=== PATIENT | female | born 1960 | race Caucasian/White ===

== ENCOUNTER 2022-03-14 15:30 | Outpatient (RCR) | payer BC, SELFPAY | END 2022-05-22 15:13 | disposition home or self-care (01) | PROVIDERS: PCP Physician Assistant Medical; Visit Provider Physician Assistant Medical | DX: M54.42 Lumbago with sciatica, left side (principal); Z51.89 Encounter for other specified aftercare | CPT/HCPCS: 97012; 97110; 97140 ==

== ENCOUNTER 2022-04-13 14:15 | Outpatient (CLI) | payer BC, SELFPAY ==
--- NOTE | 2022-04-13 14:30 | CRLHL7_ITS ---
For Patients: As a result of the Century Cures Act, medical imaging exams and procedure reports are released immediately into your electronic medical record. You may view this report before your referring provider. If you have questions, please contact your health care provider. Indication: LOW BACK PAIN Technique: Noncontrast sagittal and axial T1, T2, and sagittal STIR sequences are provided. Comparison: No prior studies available for comparison at this institution. Findings: There is straightening of lumbar spine alignment. Multilevel chronic Schmorl`s nodes. Degenerative retrolisthesis of L5-S1. No fractures. No prevertebral or paraspinal edema. No aggressive osseous lesion. The conus medullaris is normal in signal and location. T12-L1: No significant spinal canal stenosis or neural foramen narrowing. L1-2: No significant spinal canal stenosis or neural foramen narrowing. L2-3: Mild disc bulge and facet arthrosis. No significant spinal canal stenosis or neural foramen narrowing. L3-4: Bilateral facet arthrosis. No significant spinal canal stenosis or neural foramen narrowing. L4-5: Posterior disc bulge and superimposed left central disc extrusion and bilateral facet arthrosis. Severe left and moderate right lateral recess stenosis and moderate-severe spinal canal stenosis. No neural foramen narrowing L5-S1: Moderate disc space narrowing, slight retrolisthesis. Disc bulge and bilateral facet arthrosis. Small left central disc extrusion indents the ventral thecal sac. Moderate left subarticular recess narrowing and possible irritation of the traversing S1 nerve roots. No neural foramina narrowing. Impression : 1. No acute osseous abnormality. 2. At L5-S1, there is degenerative retrolisthesis and left central disc extrusion, and facet arthrosis resulting in moderate left subarticular recess narrowing. 3. At L4-5, moderate-severe spinal canal stenosis and severe left lateral recess narrowing. 4. No significant neural foramina narrowing. Dictated by Malcolm Degroot MD @ 04/14/2022 9:03:57 AM (Electronically Signed)
== END 2022-04-13 14:16 | disposition home or self-care (01) ==
LOC: MRI 14:16
PROVIDERS: PCP Physician Assistant Medical; Visit Provider Physician Assistant Medical
DX: M54.50 Low back pain, unspecified (principal); M48.061 Spinal stenosis, lumbar region without neurogenic claudication; M51.27 Other intervertebral disc displacement, lumbosacral region
CPT/HCPCS: 72148

== ENCOUNTER 2022-09-19 11:15 | Outpatient (RCR) | payer BC, SELFPAY | END 2022-12-05 15:38 | disposition home or self-care (01) | PROVIDERS: PCP Physician Assistant Medical; Visit Provider Family Medicine | DX: M54.16 Radiculopathy, lumbar region (principal); M51.26 Other intervertebral disc displacement, lumbar region; M51.36 Other intervertebral disc degeneration, lumbar region; Z51.89 Encounter for other specified aftercare | CPT/HCPCS: 97012; 97032; 97110; 97140; 97161; 97535 ==

== ENCOUNTER 2022-09-27 14:30 | Outpatient (CLI) | payer BC, SELFPAY ==
[2022-09-27 16:56] LABS: Uric Acid* 3.8 mg/dL (2.2-8.4)
[2022-09-27 17:11] LABS: Vitamin D 25 Hydroxy* 70 ng/mL (30-80)
[2022-09-27 17:44] LABS: Vitamin B12* 511 pg/mL (243-894)
[2022-09-29 22:47] LABS: Folate, Serum 14.4 ng/mL (>=5.9)
[2022-10-04 10:46] LABS: Vitamin B1, Whole Blood 149 nmol/L (70-180)
== END 2022-09-27 14:31 | disposition home or self-care (01) ==
PROVIDERS: PCP Physician Assistant Medical; Visit Provider Physician Assistant Medical
DX: G62.9 Polyneuropathy, unspecified (principal); M79.671 Pain in right foot; M79.672 Pain in left foot
CPT/HCPCS: 82306; 82607; 82746; 84207; 84425; 84443; 84550

== ENCOUNTER 2024-02-21 13:48 | Outpatient (CLI) | payer BC, SELFPAY ==
[2024-02-22 00:37] LABS: Chlamydia DNA Amplified* NOT DETECTED (No Detected); GC DNA Amplified* NOT DETECTED (No Detected)
== END 2024-02-21 13:49 | disposition home or self-care (01) ==
LOC: LKVREF 13:48
PROVIDERS: PCP Physician Assistant Medical; Visit Provider Physician Assistant Medical
DX: Z00.00 Encounter for general adult medical examination without abnormal findings (principal); R63.4 Abnormal weight loss; I10 Essential (primary) hypertension; R73.09 Other abnormal glucose; Z13.6 Encounter for screening for cardiovascular disorders; Z13.0 Encounter for screening for diseases of the blood and blood-forming organs and certain disorders involving the immune mechanism
CPT/HCPCS: 87491; 87591

== ENCOUNTER 2024-02-22 08:20 | Outpatient (CLI) | payer BC, SELFPAY | END 2024-02-22 08:21 | disposition home or self-care (01) | LOC: NFLDREF 02-24 02:57 | PROVIDERS: PCP Physician Assistant Medical; Referring Provider Physician Assistant Medical; Visit Provider Physician Assistant Medical | DX: Z00.00 Encounter for general adult medical examination without abnormal findings (principal); R63.4 Abnormal weight loss; I10 Essential (primary) hypertension; R73.09 Other abnormal glucose; Z13.6 Encounter for screening for cardiovascular disorders; Z13.0 Encounter for screening for diseases of the blood and blood-forming organs and certain disorders involving the immune mechanism | CPT/HCPCS: 80053; 84443; 86703; 86803 ==

== ENCOUNTER 2024-03-11 14:55 | Outpatient (CLI) | payer BC, SELFPAY ==
--- OUTSIDE RECORDS SUMMARY | 2024-03-14 02:58 | XMS_ITS | Referral Summary ---
Author Organization [facility] Address [address] [place] [address]. [place] [address] Care Team Providers Care Fire Inspector Name Role Phone Ely Whitehead MD Primary Care Provider Allergies Active Allergy Reactions Criticality Noted Date Comments Tetracycline Other (See Comments) 07/26/2011 Facial numbness Face numbness Medications Medication Sig Dispensed Refills Start Date End Date Status Ranitidine HCl (ZANTAC PO) Take 75 mg by mouth daily Active LISINOPRIL PO Take 20 mg by mouth daily Active Cholecalciferol (VITAMIN D) 2000 units tablet Take 2,000 Units by mouth Active omega 3 1000 MG CAPS Take 2 g by mouth Active MAGNESIUM OXIDE PO Take 400 mg by mouth Active mupirocin (BACTROBAN) 2 % ointmentIndications:Se baceous cyst Apply to left lateral ear canal BID x 1 month supply 2 g 3 02/28/2018 Active Active Problems Problem Noted Date Diagnosed Date Menorrhagia 10/25/2014 Social History Tobacco Use Types Packs/Day Years Used Date Smoking Tobacco: Never Smokeless Tobacco: Never Tobacco Cessation:Counseling Given: No Alcohol Use Standard Drinks/Week Comments No 0 (1 standard drink = 0.6 oz pur e alcohol) PHQ-2 Answer Date Recorded PHQ-2 Score 0 03/22/2018 Adolescent Education Answer Date Record ed Getting School Help Needed Not on file 06/13 Sex and Gender Information Value Date Recorded Sex Assigned at Not on file Gender Identity Not on file Sexual Orientation Not on file Last Filed Vital Signs Vital Sign Reading Time Taken Comments Blood Pressure 149/81 03/02/2020 5:00 PM CDT Pulse 60 03/02/2020 5:00 PM CDT Temperature 36.4 ??C (97.6 ??F) 03/02/2020 2:46 PM CD T Respiratory Rate 16 03/02/2020 7:16 PM CDT Oxygen Saturation 97% 03/02/2020 5:00 PM CDT Inhaled Oxygen Concentration - - Weight 72.1 kg (159 lb) 03/22/2018 12:52 PM CDT Height 175 cm (5' 8.9) 03/22/2018 12:52 PM CDT Body Mass Index 23.55 03/22/2018 12:52 PM CDT Plan of Treatment Not on file Care Teams Fire Inspector Relationship Specialty Start Date End Date Ely Whitehead MD [facility] [address] [place] [address] PCP - General Family Practice 10/08/14
--- OUTSIDE RECORDS SUMMARY | 2024-03-14 02:58 | XMS_ITS | Encounter Summary ---
Author Organization [facility] Address [address] [place] [address]. [place] [address] Care Team Providers Care Linux Network Systems Administrator Name Role Phone Ely Whitehead MD Primary Care Provider [phone]- [phone] Reason for Visit * Reason Onset Date Comments Appointment 04/23/2018 Encounter Details Date Type Department Care Team (Late st Contact Info) Description 04/23/2018 Telephone [facility] [address] [facility] 4th [place] [address] Ely Whitehead MD [facility] [id number] [place] [address] [place] [address] Appointment Social History Tobacco Use Types Packs/Day Years Used Date Smoking Tobacco: Never Smokeless Tobacco: Never Alcohol Use Standard Drinks/Week Comments No 0 (1 standard drink = 0.6 oz pur e alcohol) PHQ-2 Answer Date Recorded PHQ-2 Score 0 03/22/2018 Sex and Gender Information Value Date Recorded Sex Assigned at Not on file Gender Identity Not on file Sexual Orientation Not on file documented as of this encounter Miscellaneous Notes * Telephone Encounter - Edson Hamilton - 04/23/2018 9:10 AM CDT [facility] Phone Message May a detailed message be left on voicemail: yes Reason for Call: Other: Marcy Escalera - Pt would like to change her appt. on 05/17/18 Action Taken: Message routed to: [facility] Please call Pt to see if it can be rescheduled documented in this encounter Plan of Treatment Not on file documented as of this encounter Visit Diagnoses Not on filedocumented in this encounter Care Teams Linux Network Systems Administrator Relationship Specialty Start Date End Date Ely Whitehead MD [facility] [place] [address] [place] [address] [place] [id number] PCP - General Family Practice 10/08/14 documented as of this encounter
--- OUTSIDE RECORDS SUMMARY | 2024-03-14 02:58 | XMS_ITS | Clinical Summary ---
Author Organization [facility] Address [address] [place] [address] Care Team Providers Care Fructose Loader Name Role Phone Ely Whitehead MD Primary Care Provider Source Comments You are receiving this document as you are listed as the primary care provider,follow-up provider, or the patient has been referred to you for consultation.This is in compliance with the Medicare andSt. [facility] Hospital[facility] EHR Incentive Program,which states Providers who transition their patient to another setting of careor provider of care or refers their patient to another provider of care shouldprovide summary care record for each transition of care or referral. [facility] Allergies Active Allergy Reactions Criticality Noted Date Comments Tetracyclines & Related Other, see comments High PN: facial numbness Medications Medication Sig Dispensed Refills Start Date End Date Status Magnesium Glycinate 665 MG CAPS Take as directed. 03/16/2021 Active ibuprofen (MOTRIN) 200 MG tablet Take by mouth every 6 hours. 03/01/2022 Active lisinopril (ZESTRIL) 10 MG tabletIndications:Hy pertension Take 1 Tablet (10 mg) by mouth daily. Indications: High Blood Pressure Disorder 90 Tablet 4 04/12/2023 Active Cholecalciferol (VITAMIN D3) 1.25 MG (41171 UT) TABS 05/27/2022 Active Active Problems Problem Noted Date Diagnosed Date Prediabetes 04/12/2023 Varicose veins of left lower extremity with comp lications 05/18/2022 Overview: Added automatically from request for surgery [id number] Hyperlipidemia 03/16/2022 Essential hypertension Resolved Problems Problem Noted Date Diagnosed Date Resolved Date Carotid artery narrowing 03/05/2020 Overview: Left superior cornu of thyroid cartilage exerts localized mass effect on the mid cervical portion of the left ICA resulting in narrowing of 65% on CTA at in 02/2020. Right-sided tinnitus 03/05/2020 021 Macromastia 05/21/2019 02/19/2020 Overview: Added automatically from request for surgery [id number] Palpitations 02/04/2019 03/16/2021 Overview: Ziopatch 12/2018 showed benign non-sustained supraventricular tachycardia. Myofascial pain 06/11/2018 03/16/2021 Neck pain 06/11/2018 03/16/2021 Cervicocranial syndrome 06/11/201802/25 Costochondral chest pain 08/15/2013 Stress incontinence, female 03/25/2012 03/31/2013 Deviated nasal septum 03/25/20122020 GERD (gastroesophageal reflux disease) 03/25/2012 03/17/2022 HTN (hypertension) 6 Overview: Cr 0.8, Na 140, K 4.3 on labs 02/2015 at work. IFG (impaired fasting glucose) 03/16/2021 Immunizations Name Administration Dates Next Due Flu Vac Preserv Free (3+yrs) 05/11/2015,06/24/20 10,07/29/2009 Flublok (RIV4) 05/23/2023 Fluzone Qiv Multidose Vial 0 .25 (6-35 Mos) 05/05/2020 [id number] 09/01/2009 HepB Adult (Engerix-B, 20+ y rs, 3 dose series) 04/03/2007,11/13/2006,10/08/2006 HepB, Unspecified Formulation 04/03/2007, 007,10/08/2006 IPV (Polio) 05/08/1963,,01/26/1962,1961 Influenza (Flucelvax), Prese rv Free QIV 05/17/2022,06/12/2021 Influenza IIV4 (Quadrivalent ) 0.5mL (84924) 05/05/2019,06/08/2018,06/04/2017,2012,09/01/2009 Influenza, Unspecified Formulation 06/04/2017 Moderna 12+ 05/23/2023 Moderna Bivalent 12+ 05/17/2022 Moderna Monovalent 12+ 02/07/2022,2020,12/21/2020,2020 OPV, Trivalent (Orimune or tOPV) 963,02/25/1962,01/26/1962,1961 RSV Arexvy 05/23/2023 TDAP (BOOSTRIX) 03/25/2012 Td 09/15/2003 Td (7+ yrs) 09/15/2003 Tdap 03/17/2022 Zoster RZV (Shingrix) 05/28/2020,05/11/2020,01/26 Family History Medical History Relation Name Comments Coronary Artery Disease Father Heart Failure Father Colon Polyps Mother Aisha unknown type High Cholesterol Mother Aisha Hypertension Mother Aisha Lymphoma Mother Aisha Non-Hodgkin's Hypertension Brother 1 Elvis Other Brother 1 Elvis neurologic diso rder Hypertension Brother 2 Don Urolithiasis Brother 3 Rafiq Hypertension Sister Estefany Anesthesia Reaction Negative Family History Cancer, Breast Negative Family History Cancer, Colon Negative Family History Cancer, Ovary Negative Family History Relation Name Status Comments Father Mother Aisha Brother 1 Elvis Alive Brother 2 Don Alive Brother 3 Rafiq Alive Maternal Grandfather Maternal Grandmother Paternal Grandfather Paternal Grandmother Sister Estefany Alive Social History Tobacco Use Types Packs/Day Years Used Date Smoking Tobacco: Never Passive Smoke Exposure: Never Smokeless Tobacco: Never Alcohol Use Standard Drinks/Week Comments Never 0 (1 standard drink = 0.6 oz pur e alcohol) PHQ-2 Answer Date Recorded PHQ-2 Score 0 04/12/2023 Financial Resource Strain Answer Date R ecorded Is it hard for you to pay fo r the very basics like food, housing, medical care or heating? No 04/11/2023 Food Insecurity Answer Date Recorded Does your food run out before you have the money to buy more? No 04/11/2023 Transportation Needs Answer Date Record ed Does a lack of transportatio n keep you from your medical appointments or from getting your medications? No 023 Sex and Gender Information Value Date Recorded Sex Assigned at Not on file Gender Identity Not on file Sexual Orientation Not on file Last Filed Vital Signs Vital Sign Reading Time Taken Comments Blood Pressure 114/83 04/12/2023 11:02 AM CDT Pulse 61 04/12/2023 11:02 AM CDT Temperature 36.9 ??C (98.5 ??F) 09/29/2019 9:08 AM CS T Respiratory Rate 17 06/11/2020 1:07 PM CDT Oxygen Saturation 99% 10/25/2017 5:10 PM ACCOUNT TECHNICIAN Inhaled Oxygen Concentration - - Weight 73.1 kg (161 lb 3.2 oz) 04/12/2023 11:02 AM CDT Height 176.5 cm (5' 9.5) 04/12/2023 11:02 AM CD T Body Mass Index 23.46 04/12/2023 11:02 AM CDT Plan of Treatment Health Maintenance Due Date Last Done Comments Adult Preventive Visit 04/12/2024 , 03/17/2022, 03/16/2021, Additional history exists Mammogram 04/12/2024 04/12/2023, 02/25, 03/01/2021, Additional history exists Prediabetes: HGBA1C 04/12/2024 04/12/2023, 03/17/2022, 03/16/2021, Additional history exists Influenza (#1) 2024 05/23/2023, 04/28, 06/12/2021, Additional history exists Cholesterol 04/12/2028 04/12/2023, 02/25, 12/07/2018, Additional history exists Colonoscopy 03/01/2032 03/01/2022, 03/28 (Completed) DTaP/Tdap/Td (3 - Tdap) 03/17/2032 03/17/20 22, 03/25/2012, 09/15/2003, Additional history exists IPV (Polio) Completed 05/08/1963, 04/27, 03/03/1962, Additional history exists HepB Completed 04/03/2007, 03/2007, 11/13/2006, Additional history exists Hep C Screening (Preventive Services) Completed 12/01/2015 HIV Screening (Preventive Services) Completed 02/04/2018 Zoster/Shingles Completed 05/28/2020, 04/27, 02/19/2020 Cervical Cancer Screening Discontinued 2022, 01/30/2018, 04/15/2014 COVID-19 Vaccine Completed 05/23/2023, , 02/07/2022, Additional history exists HepA Aged Out No longer eligi ble based on patient's age to complete this topic Hib Aged Out No longer eligi ble based on patient's age to complete this topic MCV4 Aged Out No longer eligi ble based on patient's age to complete this topic Pneumococcal Aged Out No longer eligi ble based on patient's age to complete this topic Procedures Procedure Name Priority Date/Time Associated Diagnosis Comments HGB A1C Routine 04/12/2023 12:12 PM CDT Screening for diabetes mellitus LIPID PANEL & DIRECT LDL (IF NEEDED) Routine 04/12/2023 12:12 PM CDT Hyperlipidemia, unspecified hyperlipidemia type (HRC) PAP TEST Routine 04/12/2023 11:56 AM CDT Screening for malignant neoplasm of cervix MM MAMMOGRAM SCREENING BILAT W 3D ISAIAH W CAD Routine 04/12/2023 10:41 AM CDT COLONOSCOPY S 03/01/2022 HIV 1/2 AG/AB 4TH GEN Routine 02/04/2018 7:45 AM CDT Screening for HIV (human immunodeficiency virus) HEPATITIS C ANTIBODY, WITH REFLEX Routine 12/01/2015 12:36 PM CDT Need for hepatitis C screening test from Last 3 Months or Most Recently Relevant to Health Maintenance Results * (ABNORMAL) Lipid Panel and Direct LDL(If Needed) (04/12/2023 12:12 PM CDT) [facility] Cholesterol 203(H) 0 - 199 mg/dL 04/12/2023 1:41 PM CDT [facility] Triglyceride 70 <=149 mg/dL 04/12/2023 1:41 PM T [facility] HDL Cholesterol 63 >=40 mg/dL 3 1:41 PM CDT [facility] LDL, Calculated 126 <130 mg/dL 3 1:41 PM T [facility] Non HDL Chol, Calculated 140 <=159 mg/dL 04/12/2023 1:41 PM T [facility] Cholesterol/HDL Ratio 3.2 04/12/2023 1:41 PM [facility] Hours Fasting 12.0 8 - 12 Hours 04/12/2023 1:41 PM [facility] Blood Venipuncture / Unknown 04/12/2023 12:12 PM CDT 04/12/2023 12:12 PM CDT Ely Whitehead MD LAB_1 [facility] [address] [place] [address], [facility] [phone] * Hgb A1C (04/12/2023 12:12 PM CDT) [facility] Hemoglobin A1C (Rapid) 5.5 <=5.6 % 04/12/2023 12:37 PM CDT [facility] Estimated Average Glucose (Calc) 111 < 117 mg/dL 04/12/2023 12:37 PM [facility] Comment:Estimated average gl ucose (eAG) converts A1c into glucose units (mg/dL) and estimates average glucose over the past approximately 3 months. The eAG reference interval (<117 mg/dL) corresponds to an A1c of <5.7%. Blood Venipuncture / Unknown 04/12/2023 12:12 PM CDT 04/12/2023 12:12 PM CDT Narrative [facility] - 04/12/2023 12:37 PM CDT The test method used for this Hemoglobin A1c result can experience interference from elevated hemoglobin and other hemoglobin variants. In patients with results that do not correlate clinically, contact the lab for further direction. Ely Whitehead MD LAB_1 [facility] [address] [place] [address], [facility] [phone] * PAP Test (04/12/2023 11:56 AM CDT) Case Report Pap ? Case: [id number] ? Authorizing Provider: ??Ely Whitehead MD Collected: ? 04/12/2023 1156 ? Ordering Location: ? [facility] Received: ?04/12/2023 1300 ? First Screen: ?Minda Le ? Rescreen: ?Lily Jolly ? Specimen: ?Pap Test, Routine, Cervix/Endocervix ? 04/23/2023 3:28 PM CDT [facility] Pap Specimen Adequacy Satisfactory for evaluation, endocervical/rockwell sformation zone component present. 04/23/2023 3:28 PM CDT [facility] Pap Interpretation (NILM) Negative for intraepithelial lesion or malignancy. 04/23/2023 3:28 PM CDT [facility] Pap Disclaimer The Pap test is a screening test to aid in the detection of cervical and vaginal cancers and their precursor lesions. It is not a diagnostic procedure and should not be used as the sole means of detecting malignancy. Both false-positive and false-negative results may occur. 04/23/2023 3:28 PM CDT [facility] Gross Description The specimen is received in SurePath fixative and properly labeled. 1 Pap-stained SurePath slide is prepared. 04/23/2023 3:28 PM CDT [facility] Embedded Images 3:28 PM CDT [facility] Other Specimen Type ENTIRE ENDOCERVIX / Unknown 04/12/2023 11:56 AM CDT 04/12/2023 1:00 PM CDT Comment:LMP: No LMP recorded . Patient has had an ablation. Ely Whitehead MD LAB PATHOLOGY Performing Organization Address City/State/[facility] Co de Phone Number [facility] [address] [employer] [address] * MM Mammogram Screening Bilat W 3D Isaiah W CAD (04/12/2023 10:41 AM CDT) Anatomical Region Laterality Modality Breast Bilateral Mammography Impressions 04/12/2023 4:56 PM CDT : ACR BI-RADS Category 2: Benign RECOMMENDATION: Follow Up Imaging in 12 months - Bilateral The results and recommendations of this examination will be communicated to the patient. Narrative 04/12/2023 4:56 PM CDT MM MAMMOGRAM SCREENING BILAT W 3D ISAIAH W CAD performed on 04/12/23 Compared to: 03/17/2022 MM Mammogram Screening Bilat W 3D Isaiah W CAD, 03/01/2021 MM Mammogram Screening Bilat W 3D Isaiah W CAD, and 03/10/2019 MM Mammogram Screening Bilat W 3D Isaiah W CAD ?? FINDINGS: Bilateral screening mammogram was performed with the assistance of Computer-Aided Detection and breast tomosynthesis. The breasts are heterogeneously dense, which may obscure small masses. There are changes of breast reduction. There is no radiographic evidence of malignancy. ?? Ely Whitehead MD RAD NEHEMIAS * COLONOSCOPY S (03/01/2022) Ely Whitehead MD DUMMY/OTHER/AR * HIV 1/2 Ag/Ab 4th Generation (02/04/2018 7:45 AM CDT) HIV-1 p24 Ag and HIV-1/HIV-2 Ab Nonreactive Nonreactive PN SOFT 02/04/2018 7:45 AM CDT 02/04/2018 12:58 PM CDT Narrative PN SOFT - 02/04/2018 5:50 PM CDT Performed at [address] [address] CLIA number [id number] Ely Whitehead MD LAB_1 SOFT [address] [place] [address] * Hepatitis C Antibody, with Reflex (12/01/2015 12:36 PM CDT) Hepatitis C Antibody Nonreactive Non-React norah HP CONVERSION 12/01/2015 12:3 6 PM CDT 12/01/2015 3:15 PM CDT Narrative HP CONVERSION - 12/01/2015 5:59 PM CDT Performed at [address] [place] [address] [place] number [id number] Ely Whitehead MD LAB_1 HP CONVERSION from Last 3 Months or Most Recently Relevant to Health Maintenance Advance Directives * Full Code (Latest Code Status on File) Date Activated Date Inactivated Comments 01/03/2013 9:37 AM 01/03/2013 6:20 PM Care Teams Fructose Loader Relationship Specialty [place] [address] [place] [address] PCP - General 02/16/12
--- OUTSIDE RECORDS SUMMARY | 2024-03-14 02:58 | XMS_ITS | Encounter Summary ---
Author Organization [facility] Address [address] [place] [address]. [place] [address] Care Team Providers Care Chef Head Name Role Phone Ely Whitehead MD Primary Care Provider +1- [phone] Encounter Details Date Type Department Care Team (Late st Contact Info) Description 05/14/2018 [facility] [facility] N[facility] Th[facility] [address] [facility] 4th [place] [address] Ze Pierson MD [address] [facility] [address] [place] [address] Social History Tobacco Use Types Packs/Day Years [...] on file documented as of this encounter Plan of Treatment Not on file documented as of this encounter Visit Diagnoses Not on filedocumented in this encounter Care Teams Chef Head Relationship Specialty Start Date End Date Ely Whitehead MD [facility] [address] [place] [address] PCP - General Family Practice 10/08/14 documented as of this encounter
--- OUTSIDE RECORDS SUMMARY | 2024-03-14 02:58 | XMS_ITS | Clinical Summary ---
Author Organization [facility] Address [place], [place] [address] Care Team Providers Care Warp Knitter Helper Name Role Phone Ely Whitehead MD Primary Care Provider Allergies Active Allergy Reactions Criticality Noted Date Comments Tetracycline Other - Describe In Comment Field 07/26/2011 Facial numbness Medications Medication Sig Dispensed Refills Start Date End Date Status lisinopril (PRINIVIL; ZESTRIL) 20 mg tablet TAKE ONE TABLET BY MOUTH ONE TIME DAILY 30 tablet 0 09/03/2014 Active cholecalciferol, Vitamin D3, 5,000 unit tab tablet Take by mouth once daily. 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 Magnesium glycinate 0 06/28/2022 Active traMADoL (ULTRAM) 50 mg tabletIndications:Lum bar radiculopathy Take 1 Tablet (50 mg) by mouth every 6 hours if needed for Pain. 18 Tablet 09/14/2022 Active tiZANidine (ZANAFLEX) 4 mg tabletIndications:Lum bar radiculopathy TAKE 1 TABLET(4 MG) BY MOUTH EVERY 6 HOURS NEEDED FOR MUSCLE SPASM 24 Tablet 1 09/27/2022 Active gabapentin (NEURONTIN) 300 mg capsuleIndications:Carmen mbar radiculopathy TAKE 1 CAPSULE(300 MG) BY MOUTH AT BEDTIME 30 Capsule 10/22/2022 Active Active Problems Problem Noted Date Diagnosed Date Rosacea 06/08/2015 HTN (hypertension) 08/15/2013 Costochondral chest pain 08/15/2013 Pre-employment examination 07/26/2011 Encounters Date Type Department Care Team Description 03/05/2024 Lab Requisition [facility] [phone] Justine Kurtz MD 02/22/2024 Lab Requisition [facility] [phone] Jennifer Hollis PA-C from Last 3 Months Immunizations Name Administration Dates Next Due Hepatitis B (Adult) 04/03/2007,11/13/2006,2006 Influenza, IIV3 (Age >=3 years) 05/22/2013 Tdap 03/25/2012 Family History Medical History Relation Name Comments Heart Disease Father Cancer Mother non-hodgkins ly mphoma Heart Disease Mother stents Relation Name Status Comments Father Mother Social History Tobacco Use Types Packs/Day Years Used Date Smoking Tobacco: Never Smokeless Tobacco: Never Tobacco Cessation:Counseling Given: Yes Alcohol Use Standard Drinks/Week Comments No 0 (1 standard drink = 0.6 oz pur e alcohol) Social Connections Answer Date Recorded Frequency of Communication with Friends and Fami ly Not on file 06/28/2022 Sex and Gender Information Value Date Recorded Sex Assigned at Not on file Gender Identity Not on file Sexual Orientation Not on file Obstetrics History Last Filed Vital Signs Vital Sign Reading Time Taken Comments Blood Pressure 94/65 12/06/2022 2:14 PM CDT Pulse 65 12/06/2022 2:14 PM CDT Temperature 36.9 ??C (98.4 ??F) 12/06/2022 2:14 PM CD T Respiratory Rate 12 01/29/2014 9:41 AM CDT Oxygen Saturation 96% 12/06/2022 2:14 PM CDT Inhaled Oxygen Concentration - - Weight 77.5 kg (170 lb 12.8 oz) 12/06/2022 2:14 PM CDT shoes on Height 175.9 cm (5' 9.25) 08/15/2013 4:26 PM CS T Body Mass Index 25.04 08/15/2013 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 Plan of Treatment Health Maintenance Due Date Last Done Comments Depression screening for age 12+ 1973 HIV for age 15-65 1976 BMI (ht and wt on same day) for age 18+ 1979 Hepatitis C screening for age 18-79 1979 Lipids for age 45-75 2006 Zoster (shingles) series for age 50+ (1 of 2) 2011 Mammogram for age 45-75 03/03/2014 03/03/20 13 (Completed outside of [facility]) Tetanus booster 03/25/2022 03/25/2012 Colonoscopy through age 75 09/26/202209/26 (Completed outside of [facility]) Influenza for age 50-64 04/27/2024 05/22/2013 Pap test for age 21-65 02/20/2029 4, 02/21/2024, 01/30/2018 (Verified in Care Everywhere or Patient Record), Additional history exists Tdap Completed 03/25/2012 COVID-19 vaccine series Completed 05/23/2023, 05/17 Pneumococcal series for age 6-64 Aged Out No longer eligible based on patient's age to complete this topic Procedures Procedure Name Priority Date/Time Associated Diagnosis Comments LAB TRACKING EVENT Routine 03/05/2024 12 :55 PM CDT PATH TISSUE EXAM Routine 03/05/2024 12:5 5 PM CDT LAB TRACKING EVENT Routine 02/21/2024 12 :00 PM CDT DIRECTOR OF SEARCH ENGINE OPTIMIZATION THIN PREP PAP SCREEN IMAGED Routine 02/21/2024 12:00 PM CDT HPV THIN PREP Routine 02/21/2024 12:00 PM CDT from Last 3 Months Results * LAB TRACKING EVENT (03/05/2024 12:55 PM CDT) Only the most recent of2 resultswithin the time period is included. Other (Other) Client Collect / Unknown 03/05/2024 12:55 PM CDT 03/05/2024 3:38 PM CDT Justine Kurtz MD LAB BILL O [facility] [address] [place] [address], * PATH TISSUE EXAM (03/05/2024 12:55 PM CDT) Case Report Pathology Report ?Case: [id number] ? Authorizing Provider: ??Justine Kurtz ?Collected: ? 03/05/2024 1255 ? MD Celina ? Ordering Location: ? [facility] ?Received: ?03/05/2024 1823 ? Pathologist: ? Mamta Mccain MD ? Specimen: ?Cervical Polyp ? 03/07/2024 9:35 AM CDT [facility]TRAL LABORATORY Final Diagnosis A) CERVIX, POLYPECTOMY: 1. Benign endocervical polyp with reactive changes 2. Negative for glandular neoplasia, squamous intraepithelial lesion, and malignancy 03/07/2024 9:35 AM CDT [facility] Clinical Information Cervical polyp 03/07/2024 9:35 AM CDT [facility]AL LABORATORY Gross Description A) Received in formalin, labeled with the patient's name and cervical polyp, is a 0.5 x 0.5 x 0.3 cm pink-garcia rubbery polyp. ??Apparent base is inked. ??The specimen is entirely submitted in 1 cassette. TLF 03/05/2024 03/07/2024 9:35 AM CDT [facility] Microscopic Description The final diagnosis is based on microscopic examination of appropriate sections of all specimens. 03/07/2024 9:35 AM CDT [facility] Additional Information Interpreted at [facility] - [address] [place] [id number] 03/07/2024 9:35 AM CDT [facility] Other (Cervical Polyp) 03/05/2024 12:55 PM CDT 03/05/2024 6:23 PM CDT Justine Kurtz MD PATHOLOGY/ CYTOLOGY Performing Organization Address City/State/[facility] Co de Phone Number [facility] [address] [place] [address], * DIRECTOR OF SEARCH ENGINE OPTIMIZATION THIN PREP PAP SCREEN IMAGED (02/21/2024 12:00 PM CDT) Case Report Gynecologic Cytology Report ? Case: [id number] ? Authorizing Provider: ??Jennifer Hollis PA-C ?Collected: ? 02/21/2024 1200 ? Ordering Location: ? [facility] ?Received: ?02/25/2024 1610 ? First Screen: ?Afsaneh Leon ? Specimen: ?DIRECTOR OF SEARCH ENGINE OPTIMIZATION ThinPrep Vial Screening, Cervical ? 03/02/2024 12:58 PM CDT [facility] INTERPRETATION/ RESULT NEGATIVE FOR INTRAEPITHELIAL LESION OR MALIGNANCY (NIL) (none) 03/02/2024 12:58 PM CDT [facility] IMEN ADEQUACY Satisfactory for evaluation No endocervical component seen 03/02/2024 12:58 PM CDT [facility] HPV REQUEST HPV and PAP 03/02/2024 12:58 PM CDT [facility] Date of LMP 03/02/2024 12:58 PM CDT [facility] Comment:menopause Last Pap Date 06/04/2017 03/02/2024 12:58 PM CDT [facility] Last Pap Result NIL 12:58 PM CDT [facility] Additional Information 03/02/2024 12:58 PM CDT [facility] Comment: Interpreted at [facility] - [address], [place] [address] Automated Review Successful 03/02/2024 12:58 PM CDT [facility] Comment:Specimen processed s uccessfully by automated passenger coach driver device, ThinPrep Imaging System, [employer] ANCILLARY TESTING DIRECTOR OF SEARCH ENGINE OPTIMIZATION HPV Ordered, Please see separate report 03/02/2024 12:58 PM CDT [facility] Note The pap test is a screening technique, not a diagnostic procedure. It is used primarily to screen for squamous cancers and precursor lesions. Published studies have shown that it is subject to both false negative and false positive results. The pap test should not be used as the sole means to diagnose or exclude pre-malignant and malignant lesions. 03/02/2024 12:58 PM CDT [facility] Other (Cervical) 02/21/2024 12:00 PM CDT 02/25/2024 4:10 PM CDT Jennifer Hollis PA-C PATHOLOGY/CYTOLOGY Performing Organization Address [facility]/ZIP Co de Phone Number [facility] [address] [place] [address], * HPV HIGH RISK (02/21/2024 12:00 PM CDT) TYPE 16 Negative Negative 02/27/2024 6:05 AM CDT [facility]AT[facility] TYPE 18 Negative Negative 02/27/2024 6:05 AM CDT [facility] OTHER HIGH RISK TYPES Negative Negative 02/27/2024 6:05 AM CDT [facility] Other (Cervical) 02/21/2024 12:00 PM CDT 02/25/2024 4:10 PM CDT Narrative [facility] - 02/27/2024 6:05 AM CDT HPV types 16, 18, 31, 33, 35, 39, 45, 51, 52, 56, 58, 59, 66 and 68 DNA were undetectable or below the pre-set threshold. Methodology: Keila Yusra 4800 HPV Test Jennifer Hollis PA-C MICROBIOLOGY Performing Organization Address [facility] Co de Phone Number [facility] [address] [place] [address], from Last 3 Months Care Teams Warp Knitter Helper Relationship Specialty [place] [address] [place] ASHLEE Medeiros [address] PCP - General Family Practice 12/21/22
--- OUTSIDE RECORDS SUMMARY | 2024-03-14 02:58 | XMS_ITS | Continuity of Care Document ---
Author Organization [place] [facility] [place] Address [address] [place] [address] Care Team Providers Care Property Manager Name Role Phone CLAYTON DC Referring Provider Assessment Encounter Date Assessment Date Assessment LastModified by Organization Details LastModified Time 03/12/2024 03/12/2024 Time spent reviewing the patient? s medical record, diagnostic studies, performing a focused history and physical exam, educating the patient regarding the natural history of disease as it pertains to the patient, discussing treatment options and alternatives, medical decision making, and chartin-59 minutes. Not available 03/12/2024 15:46:22 Plan of Treatment Reminders Order Date Submit Date Provider Last Modified By Organization Details Last Modified Time Details Appointments Post Conserv ative Treatme ntRVT 2023 02:00P [facility] Not available Not available Not available Post Conserv ative Treatme nt MD 2023 02:20P [facility] Not available Not available Not available Lab None recorde d. Referral None recorde d. Procedures None recorde d. Surgeries None recorde d. Imaging None recorde d. Medication Orders None recorde d. Patient TargetsNo targets recorded. Patient Instructions Encounter Date Encounter Id Patient Instructions Last Modified By Organization Details Last Modified Time 03/12/2024 [id number] PROCEDURE RECOMMENDATIONS 1. Ultrasound guided foam sclerotherapy of the residual incompetent tributaries and varicosities greater than 3.0mm of the left leg (36770, 61760) - 2 sessions Not available 03/12/2024 15:46:57 Reason for Referral None Reported. Problems Name Status Onset Date Resolution Date Notes Provider Name and Address Organization Details Recorded Time Essential hypertension Active 03/12/20 24 Chapito Mei PA-C [address], [place], [address], [facility] 03/12/2024 15:24:00 Problem Notes None recorded. Procedures Surgical History Date Name Laterality Status Provider Name and Address Organization Details Recorded Time 02/25/20 24 Colonoscopy completed Chapito Mei PA-C [address], [place], [address], [facility] 03/12/2024 15:23:42 06/14/20 20 Orthopedic Surgery completed Chapito Mei PA-C [address], [place], [address], [facility] 03/12/2024 15:23:42 02/24/19 77 Appendectomy completed Chapito Mei PA-C [address], [place], [address], [facility] 03/12/2024 15:23:42 Imaging Results None recorded. Procedure Notes None recorded. Medical Equipment None Reported. Allergies Allergen ID Allergen Name Allergen Category Reaction Reaction Severity Criticality Documentation Date Start Date Code Code System Note Provider Name and Address Organization Details Recorded Time 6074 tetracycl ine medicatio n Not available Not available Not available 03/12/20242008 62228 RxNorm Chapito Mei PA-C [address], [place], [address], [facility] 15:23:14 Medications Name Sig Start Date Stop Date Status Note LastModified by Organization Details LastModified Time sulfamethox azole 800 mg-trimetho prim 160 mg tablet 03/12 completed Not Available Not Available Not Available lisinopril 10 mg tablet active Not Available Not Available Not Available Vitamin D3 50 mcg (2,000 unit) capsule 2021 active Not Available Not Available Not Avai lable magnesium 100 mg (as glycinate) capsule 2 capsules every day by oral route. active Not Available Not Available No t Available Vitals Date Recorded Body height Body mass index (BMI) Body weight Provider Name and Address Organization Details Last Updated DateTime 03/12/2024 175.26 cm 22.7 kg/m2 10394.22 g Chapito Mei PA-C [address], [place], [address], [facility] 03/12/2024 15:23:04 Social History Question Answer Notes LastModified by Organizat ion Details LastModified Time Tobacco Smoking Status Never Smoker Chapito Mei PA-C [address] [place], [address], [place] [facility] 03/12/2024 15:23:39 What Is Your Level Of Alcohol Consumption? 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 No Information not available 03/12/2024 Sex: Unknown Functional Status None recorded. Mental Status None recorded. Family History Relationship Description Onset Age of this Age Resolved Age Notes Mother Varicose veins of lo wer extremity 40 78 Medical History Condition Response Hypertension Y Gynecological History Statement/Question Response How many childrens do you have? 3 Number of Miscarriages 2 Number of Pregnancies 5 Are you or planning to become p regnant? N Are you ? N Obstetrics History GPAL:G 0 P 0 0 0 0 Past Encounters Encounter ID Performer Location Encounter Start Date Encounter Closed Date Diagnosis/Indication Diagnosis SNOMED-CT Code [id number] Nurys Veronica MD [address],[facility] [address] [place] [address] 03/12/2024 14:49:18 03/12/2024 16:14:46 Pain co-occurrent and due to varicose veins of left leg [id number] Nurys Veronica MD [place] [address] [facility],[address] [address] 03/12/2024 14:49:28 03/12/2024 16:16:52 Pain co-occurrent and due to varicose veins of left leg [id number] 9102 Health Concerns Section Related Observation LastModified by Organization Detai ls LastModified Time None Recorded Concern Status LastModified by Organization Details LastModified Time None Recorded Payers Encounter Date Sequence Insurance Name Policy Number Policy De La Garza Covered Member ID De La Garza Member ID Guarantor Name 03/12/2024 1 [facility] [id number] Irish Holley [id number] Irish Holley Notes Date Note Type Note Provider Name and Address Organization Details Recorded Time 03/12/2024 text/html HPI Notes: PVC ( Q4U) Initial Reported by patient. Please select the location of your concern Left Leg: Leg I have had symptoms: More than 1 year Have you ever experienced any of the following symptoms? Pain; Aching; Heaviness; Spider veins; Bulging veins When do the symptoms occur? Sitting; Standing up; After exercise; During exercise What activities of daily living do the symptoms affect? Sleep; Exercise; Work; Chores; Leisure Activities; Pain is always there no matter what I am doing What relieves your symptoms? Over the counter medicationsAdvil Do you wear compression stockings to relieve your symptoms? No Have you ever had a previous vein evaluation or treatment? Yes; Ultrasound of both legs Indicate which prior vein treatments you have had: OtherUltrasound of both legs Have you ever been diagnosed with the following? None uNrys Veronica MD [address], [place], [address], [place] [facility] 03/12/2024 16:14:45 03/12/2024 text/html HPI Notes: The patient is a 63 yo female who presents with complaints of left lower extremity varicose veins and increasing symptoms for the past few years. Symptoms include: pain, aching, heavy legs, recurring swelling, spider veins, surface veins. There is no history of DVT, SVT, ulceration, cellulitis or phleborrhagia. Symptom location: Bilateral spider veins, Left leg varicose veins and symptoms Symptom severity: 5/10; moderately severe Symptoms occur with: prolonged sitting and standing, after activity/exercise, and are worse later in the day. ADLs affected by symptoms: -Exercise/activity: limit ability to exercise, including walking. -Work: Needs to take frequent breaks to walk and/or elevate legs. -Chores: Avoids chores or needs to take breaks to walk and/or elevate legs. -Leisure activities: Avoids activities or needs to take breaks to walk and/or elevate. Conservative measures implemented without relief of symptoms: -avoidance of prolonged periods of sitting or standing, -regular exercise including moderate daily walking, -leg elevation, -weight control, -OTC analgesics, including advil PRN. Cyanoacrylate Adhesive Ablation Screening: Patient admits history of: -Reaction to bandage adhesives Patient denies history of : -Autoimmune conditions -Eczema -Reaction to household or medical adhesives -Reaction to nail salon treatment -3 or more allergies Nurys Veronica MD [address], [place], [address], [place] [facility] 03/12/2024 16:16:50 OBGyn Episode No OBEpisode recorded.
--- OUTSIDE RECORDS SUMMARY | 2024-03-14 02:58 | XMS_ITS | Clinical Summary ---
Author Organization [place] Address [address] [place] [address]. [place] [address] Care Team Providers Care Ux Manager Name Role Phone Ely Whitehead MD Primary [...] of Treatment Not on file Care Teams Ux Manager Relationship Specialty Start Date End Date Ely Whitehead MD [facility] [address] [place] [address] PCP - General Family Practice 10/08/14
--- OUTSIDE RECORDS SUMMARY | 2024-03-14 02:58 | XMS_ITS | Data Portability ---
Author Organization [place] [facility] [place] Address [address] [place] [address] Care Team Providers Care Spray Worker Name Role Phone CLAYTON DC Referring Provider [phone] Assessment Encounter Date Assessment Date Assessment LastModified [...] By Organization Details Last Modified Time 03/12/2024 [id number] PROCEDURE RECOMMENDATIONS 1. Ultrasound guided foam sclerotherapy of the residual incompetent tributaries and varicosities greater than 3.0mm of the left leg (92638, 90582) - 2 sessions Not available 03/12/2024 15:46:57 Reason for Referral None Reported. Problems Name Status Onset Date Resolution Date Notes Provider Name and Address Organization Details Recorded Time Essential hypertension Active 03/12/20 24 Chapito Mei PA-C [address], [place], [address], [facility] 03/12/2024 15:24:00 Problem Notes None recorded. Procedures Surgical History Date Name Laterality Status Provider Name and Address Organization Details Recorded Time 02/25/20 24 Colonoscopy completed Chapito Mei PA-C [address], [place], [address], [facility] 03/12/2024 15:23:42 06/14/20 20 Orthopedic Surgery completed Chapito Mei PA-C [address], [place], [address], [facility] 03/12/2024 15:23:42 02/24/19 77 Appendectomy completed Chapito Mei PA-C [address], [place], [address], [facility] 03/12/2024 15:23:42 Imaging Results None recorded. Procedure Notes None recorded. Medical Equipment None Reported. Allergies Allergen ID Allergen Name Allergen Category Reaction Reaction Severity Criticality Documentation Date Start Date Code Code System Note Provider Name and Address Organization Details Recorded Time 6074 tetracycl ine medicatio n Not available Not available Not available 03/12/20242008 66802 RxNorm Chapito Mei PA-C [address], [place], [address], [facility] 15:23:14 Medications Name Sig Start Date Stop [...] Updated DateTime 03/12/2024 175.26 cm 22.7 kg/m2 58056.22 g Chapito Mei PA-C [address], [place], [address], [facility] 03/12/2024 15:23:04 Social History Question Answer Notes LastModified by Organizat ion Details LastModified Time Tobacco Smoking Status Never Smoker Chapito Mei PA-C [address] [place], [address], [place] [facility] 03/12/2024 15:23:39 What Is Your Level Of Alcohol Consumption? 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 Information not available 03/12/2024 How Much Tobacco [...] Encounter Closed Date Diagnosis/Indication Diagnosis SNOMED-CT Code [id number] Nurys Veronica MD [address] [place],[address] [address] 03/12/2024 14:49:18 03/12/2024 16:14:46 Pain co-occurrent and due to varicose veins of left leg [id number] 9102 [id number] Nurys Veronica MD [place] [address] [place],[address] [address] 03/12/2024 14:49:28 03/12/2024 16:16:52 Pain co-occurrent and due to varicose veins of left leg [id number] 9102 Health Concerns Section Related Observation LastModified by Organization Detai ls LastModified Time None Recorded Concern Status LastModified by Organization Details LastModified Time None Recorded Advance Directives Directive None Recorded Payers Encounter Date Sequence Insurance Name Policy Number Policy De La Garza Covered Member ID De La Garza Member ID Guarantor Name 03/12/2024 1 [facility] [id number] Irish Holley [id number] Irish Holley 03/12/2024 1 [facility] [id number] Irish Holley [id number] Irish Holley Notes Date Note Type Note [...] ever been diagnosed with the following? None Nurys Veronica MD [address] [place], [address], [facility] - [facility] 03/12/2024 16:14:45 03/12/2024 [...] -3 or more allergies Nurys Veronica MD [address], [place], [address], [place] [facility] 03/12/2024 16:16:50 OBGyn Episode No OBEpisode recorded.
--- OUTSIDE RECORDS SUMMARY | 2024-03-14 02:58 | XMS_ITS | Continuity of Care Document ---
Author Organization [facility] Address [address] [address] [place] [address] Phone Care Team Providers Care Food Or Baggage Handling Rampman Name Role Phone Akbar Bryson CRNA Unavailable Unavailable Allergies, Adverse Reactions, Alerts Substance Reaction Status Criticality tetracycline Facial numbness Active No Informati on Medications Medication Instructions Dosage Effective Dates (start - stop) Status Comments lisinopril 10 mg tablet take 1 tablet by oral route every day 10 MG - Active magnesium 200 mg tablet take 4 tablets by oral route every day 4 tablets - Active Advil 200 mg tablet take 2 tablet by ora l route every 6 hours as needed with food 400 MG - Active Vitamin D3 125 mcg (5,000 unit) tablet take 1 tablet by oral route every day 1 tablet - Active Procedures Procedure Date Colonoscopy Flex; Dx (sep Pro) Advance Directives Directive Yes / No Effective Date File Name No Information Encounters Encounter Description Practice Location Reason(s) For Visit Diagnoses Date Provider Providers Copied on Encounter [facility], [address] [address], [facility] [place], [id number], [place] tel:[phone] Tobias [facility] No Information 2 Braydon Webber. [address] [place] [address], [address], [facility], [place], [id number] , [place]. tel:[phone] Referring Provider: Wilner Rod MD, [address] [facility] [address], [facility] [place], [address] . tel:[phone] [facility], [address] [address], [place], [id number], [place] tel:[phone] [facility] GI Symptoms or Concerns (chief complaint) Screening ColonoscopyEncounte r for screening for malignant neoplasm of colon 2 Marcel Darby. [address] [facility], [address], [place], [id number] , [place]. tel:[phone] Referring Provider: Referral Self, USE FOR SELF REFERRALS. [facility], [address] [address], [place], [id number], [place] tel:[phone] [facility] No Information 2 Marcel Darby. [address] [facility], [address], [place], [id number] , [place]. tel: [phone] Family History Family Member Type Diagnosis Age At Onset Mother Problem (finding) Cancer Brother Problem (finding) Alcoholism Mother Problem (finding) Colon polyps Immunizations Vaccine Date Status Comments SARS-COV-2 (COVID-19) vaccin e, mRNA, spike protein, LNP, preservative free, 100 mcg/0.5mL dose or 50 mcg/0.25mL dose administered Note: [facility] bi -directional interface ; Source: Other Registry SARS-COV-2 (COVID-19) vaccin e, mRNA, spike protein, LNP, preservative free, 100 mcg/0.5mL dose or 50 mcg/0.25mL dose administered Note: [facility] bi -directional interface ; Source: Other Registry Influenza, injectable, Madin Blanca Canine Kidney, preservative free, quadrivalent administered Note: [place] [facility] bi- directional interface ; Source: Other Registry SARS-COV-2 (COVID-19) vaccin e, mRNA, spike protein, LNP, preservative free, 100 mcg/0.5mL dose or 50 mcg/0.25mL dose administered Note: [facility] bi -directional interface ; Source: Other Registry SARS-COV-2 (COVID-19) vaccin e, mRNA, spike protein, LNP, preservative free, 100 mcg/0.5mL dose or 50 mcg/0.25mL dose administered Note: [facility] bi -directional interface ; Source: Other Registry zoster vaccine recombinant administered N ote: [facility] bi-directional interface ; Source: Other Registry Influenza administered Note: [facility] bi-d irectional interface ; Source: Other Registry zoster vaccine recombinant administered N ote: [facility] bi-directional interface ; Source: Other Registry Afluria Qd administered Note: [facility] bi-directional interface ; Source: Other Registry Afluria Qd administered Note: [facility] bi-directional interface ; Source: Other Registry Afluria Qd administered Note: [facility] bi-directional interface ; Source: Other Registry Influenza, seasonal, injecta ble, preservative free administered Note: [facility] bi-direct ional interface ; Source: Other Registry Afluria Qd administered Note: [facility] bi-directional interface ; Source: Other Registry tetanus toxoid, reduced diphtheria toxoid, and acellular pertussis vaccine, adsorbed administered Note: [facility] b i-directional interface ; Source: Other Registry Influenza, seasonal, injecta ble, preservative free administered Note: [facility] bi-direct ional interface ; Source: Other Registry Novel [id number], all formulations administered Note: [facility] bi-direct ional interface ; Source: Other Registry Influenza, seasonal, injecta ble, preservative free administered Note: [facility] bi-direct ional interface ; Source: Other Registry Engerix-B administered Note: [facility] bi-d irectional interface ; Source: Other Registry Engerix-B administered Note: [facility] bi-d irectional interface ; Source: Other Registry Engerix-B administered Note: [facility] bi-d irectional interface ; Source: Other Registry poliovirus vaccine, inactivated administe red Note: [facility] bi- directional interface ; Source: Other Registry poliovirus vaccine, inactivated administe red Note: [facility] bi- directional interface ; Source: Other Registry poliovirus vaccine, inactivated administe red Note: [facility] bi- directional interface ; Source: Other Registry poliovirus vaccine, inactivated administe red Note: [facility] bi- directional interface ; Source: Other Registry Payers Payer name Insurance type Covered green party ID Authoriza titrav(s) [employer] [facility] [id number] Social History Type Description Quantity Date Captured Comments Sex Female Smoking Status No Information Chief Complaint And Reason For Visit No Information Reason For Referral Reason For Referral No Information History Of Present Illness Encounter Date Complaint History Of Prese nt Illness GI Symptoms or Concerns Functional Status Date Functional Assessmen t No Information Instructions Date Instruction Additional Infor mation Colon Cancer Prevention Related to Screening Colonoscopy Assessments Type Assessment Date No Information Patient Care Teams Name Effective Dates (start - stop) Status Members No Information
--- OUTSIDE RECORDS SUMMARY | 2024-03-14 02:59 | XMS_ITS | Continuity of Care Document ---
Author Organization [facility] [place] Address [address] [place] [address] Care Team Providers Care Acquisition Lead Name Role Phone CLAYTON DC Referring Provider [phone] Assessment No assessment recorded. Plan of Treatment Reminders Order Date Submit Date Provider Last Modified By Organization Details Last Modified Time Details Appointments Post Conserv ative Treatme ntRVT 2023 02:00P M [facility] Not available Not available Not available Post Conserv ative Treatme erwin CORDOVA 2023 02:20P M [facility] Not available Not available Not available Lab None recorde d. Referral None recorde d. Procedures None recorde d. Surgeries None recorde d. Imaging None recorde d. Medication Orders None recorde d. Patient TargetsNo targets recorded. Patient InstructionsNo instructions recorded. Reason for Referral None Reported. Problems Name Status Onset Date Resolution Date Notes Provider Name and Address Organization Details Recorded Time Essential hypertension Active 03/12/20 24 Chapito Mei PA-C [address] [place], [address], [facility] 03/12/2024 15:24:00 Problem Notes None recorded. Procedures Surgical History Date Name Laterality Status Provider Name and Address Organization Details Recorded Time 02/25/20 24 Colonoscopy completed Chapito Mei PA-C [address] [place], [address], [facility] 03/12/2024 15:23:42 06/14/20 20 Orthopedic Surgery completed Chapito Mei PA-C [address], [place], [address], [place] - [facility] 03/12/2024 15:23:42 02/24/19 77 Appendectomy completed Chapito Mei PA-C [address] [place], [address], [facility] 03/12/2024 15:23:42 Imaging Results None recorded. Procedure Notes None recorded. Medical Equipment None Reported. Allergies Allergen ID Allergen Name Allergen Category Reaction Reaction Severity Criticality Documentation Date Start Date Code Code System Note Provider Name and Address Organization Details Recorded Time 6074 tetracycl ine medicatio n Not available Not available Not available 03/12/20242008 07408 RxNorm Chapito Mei PA-C [address] [place], [address], [facility] 15:23:14 Medications Name Sig Start Date Stop [...] Updated DateTime 03/12/2024 175.26 cm 22.7 kg/m2 49670.22 g Chapito Mei PA-C [address] [place], [address], [facility] 03/12/2024 15:23:04 Social History Question Answer Notes LastModified by Organizat ion Details LastModified Time Tobacco Smoking Status Never Smoker Chapito Mei PA-C [address] [place], [address], [facility] 03/12/2024 15:23:39 What Is Your Level Of Alcohol Consumption? 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 03/12/2024 How Much Tobacco [...] Encounter Closed Date Diagnosis/Indication Diagnosis SNOMED-CT Code 14905 Nurys Veronica MD [place] [address] [facility],[address] [address] 03/12/2024 14:49:18 03/12/2024 16:14:46 Pain co-occurrent and due to varicose veins of left leg [id number] 9102 [id number] Nurys Veronica MD [place] [address] [address] 03/12/2024 14:49:28 03/12/2024 16:16:52 Pain co-occurrent and due to varicose veins of left leg [id number] 9102 Health Concerns Section Related Observation LastModified by Organization Detai ls LastModified Time None Recorded Concern Status LastModified by Organization Details LastModified Time None Recorded Payers Encounter Date Sequence Insurance Name Policy Number Policy De La Garza Covered Member ID De La Garza Member ID Guarantor Name 03/12/2024 1 [facility] [id number] Irish Holley [id number] Irish Holley Notes Date Note Type Note [...] with the following? None Nurys Veronica MD [address] [place], [address], [facility] - [facility] 03/12/2024 16:14:45 03/12/2024 [...] more allergies Nurys Veronica MD [address] [place], [address], [facility] - [facility] 03/12/2024 16:16:50 OBGyn Episode No OBEpisode recorded.
== END 2024-03-11 14:56 | disposition home or self-care (01) ==
LOC: NFLDREF 03-14 02:56
PROVIDERS: PCP Physician Assistant Medical; Referring Provider Physician Assistant Medical; Visit Provider Family Medicine
DX: N39.0 Urinary tract infection, site not specified (principal); N30.00 Acute cystitis without hematuria
CPT/HCPCS: 87086; 87186

== ENCOUNTER 2024-03-26 08:27 | Outpatient (CLI) | payer BC, SELFPAY ==
--- OUTSIDE RECORDS SUMMARY | 2024-03-26 15:19 | XMS_ITS | Clinical Summary ---
Author Organization [place] Address [address] [place] [address]. [place] [address] Care Team Providers Care Soft Water Mechanic Name Role Phone Ely Whitehead MD Primary Care Provider [phone] Allergies Active Allergy Reactions Criticality Noted Date [...] of Treatment Not on file Care Teams Soft Water Mechanic Relationship Specialty Start Date End Date Ely Whitehead MD [employer] [address] [place] [address] PCP - General Family Practice 10/08/14
--- OUTSIDE RECORDS SUMMARY | 2024-03-26 15:19 | XMS_ITS | Clinical Summary ---
Author Organization [facility] Address [place], [place] [address] Care Team Providers Care Manager Power Name Role Phone Ely Whitehead MD Primary Care Provider [phone] Allergies Active Allergy Reactions Criticality Noted Date [...] Department Care Team Description 03/05/2024 Lab Requisition [facility] [phone] Justine Kurtz MD 02/22/2024 Lab Requisition [facility] [phone] Jennifer Hollis PA-C from Last 3 Months [...] Body Mass Index 25.04 08/15/2013 4:26 PM [employer]PER[employer] Plan of Treatment Health Maintenance Due Date [...] through age 75 09/26/202209/26 (Completed outside of [facility]) Influenza for age 50-64 04/27/2024 05/22/2013 Pap [...] EVENT Routine 02/21/2024 12 :00 PM CDT SISAL OPERATOR THIN PREP PAP SCREEN IMAGED Routine 02/21/2024 12:00 PM CDT HPV THIN PREP Routine 02/21/2024 12:00 PM CDT from Last 3 Months Results * LAB TRACKING EVENT (03/05/2024 12:55 PM CDT) Only the most recent of2 resultswithin the time period is included. Other (Other) Client Collect / Unknown 03/05/2024 12:55 PM CDT 03/05/2024 3:38 PM CDT Justine Kurtz MD LAB BILL O [facility] [address] [place] [address], * PATH TISSUE EXAM (03/05/2024 12:55 PM CDT) Case Report Pathology Report ?Case: [id number] ? Authorizing Provider: ??Justine Kurtz ?Collected: ? 03/05/2024 1255 ? MD Celina ? Ordering Location: ? [facility] ?Received: ?03/05/2024 1823 ? Pathologist: ? Mamta Mccain MD ? Specimen: ?Cervical Polyp ? 03/07/2024 9:35 AM CDT [facility] Final Diagnosis A) CERVIX, POLYPECTOMY: 1. Benign endocervical polyp with reactive changes 2. Negative for glandular neoplasia, squamous intraepithelial lesion, and malignancy 03/07/2024 9:35 AM CDT [facility] Clinical Information Cervical polyp 03/07/2024 9:35 AM CDT [facility] Gross Description A) Received in formalin, labeled with the patient's name and cervical polyp, is a 0.5 x 0.5 x 0.3 cm pink-garcia rubbery polyp. ??Apparent base is inked. ??The specimen is entirely submitted in 1 cassette. TLF 03/05/2024 03/07/2024 9:35 AM CDT [facility] Microscopic Description The final diagnosis is based on microscopic examination of appropriate sections of all specimens. 03/07/2024 9:35 AM CDT [facility] Additional Information Interpreted at [facility] - [address] [place] [address] 03/07/2024 9:35 AM CDT [facility] Other (Cervical Polyp) 03/05/2024 12:55 PM CDT 03/05/2024 6:23 PM CDT Justine Kurtz MD PATHOLOGY/ CYTOLOGY Performing Organization Address City/State/[facility] Co de Phone Number [facility] [address] [place] [address], * SISAL OPERATOR THIN PREP PAP SCREEN IMAGED (02/21/2024 12:00 PM CDT) Case Report Gynecologic Cytology Report ? Case: [id number] ? Authorizing Provider: ??Jennifer Hollis PA-C ?Collected: ? 02/21/2024 1200 ? Ordering Location: ? [facility] ?Received: ?02/25/2024 1610 ? First Screen: ?Afsaneh Leon ? Specimen: ?SISAL OPERATOR ThinPrep Vial Screening, Cervical ? 03/02/2024 12:58 PM CDT [facility] INTERPRETATION/ RESULT NEGATIVE FOR INTRAEPITHELIAL LESION OR MALIGNANCY (NIL) (none) 03/02/2024 12:58 PM CDT [facility] IMEN ADEQUACY Satisfactory for evaluation No endocervical component seen 03/02/2024 12:58 PM CDT [facility] HPV REQUEST HPV and PAP 03/02/2024 12:58 PM CDT [facility] Date of LMP 03/02/2024 12:58 PM CDT [facility] Comment:menopause Last Pap Date 06/04/2017 03/02/2024 12:58 PM CDT [facility] Last Pap Result NIL 12:58 PM CDT [facility] Additional Information 03/02/2024 12:58 PM CDT [facility] Comment: Interpreted at [facility] - [address], [place] [address] Automated Review Successful 03/02/2024 12:58 PM CDT [facility] Comment:Specimen processed s uccessfully by automated coal screener device, ThinPrep Imaging System, [employer] ANCILLARY TESTING SISAL OPERATOR HPV Ordered, Please see separate report 03/02/2024 12:58 PM CDT [facility] Note The pap test is a [...] and malignant lesions. 03/02/2024 12:58 PM CDT [facility] Other (Cervical) 02/21/2024 12:00 PM CDT 02/25/2024 4:10 PM CDT Jennifer Hollis PA-C PATHOLOGY/CYTOLOGY Performing Organization Address [facility]/ZIP Co de Phone Number [facility] [address] [place] [address], * HPV HIGH RISK (02/21/2024 12:00 PM CDT) TYPE 16 Negative Negative 02/27/2024 6:05 AM CDT [facility] TYPE 18 Negative Negative 02/27/2024 6:05 AM CDT [facility] OTHER HIGH RISK TYPES Negative Negative 02/27/2024 6:05 AM CDT [facility] Other (Cervical) 02/21/2024 12:00 PM CDT 02/25/2024 4:10 PM CDT Narrative [facility] - 02/27/2024 6:05 AM CDT HPV types 16, 18, 31, 33, 35, 39, 45, 51, 52, 56, 58, 59, 66 and 68 DNA were undetectable or below the pre-set threshold. Methodology: Keila Yusra 4800 HPV Test Jennifer Hollis PA-C MICROBIOLOGY Performing Organization Address [facility] Co de Phone Number [facility] [address] [place] [address], from Last 3 Months Care Teams Manager Power Relationship Specialty [place] [address] [address] [place] [address] PCP - General Family Practice 12/21/22
--- OUTSIDE RECORDS SUMMARY | 2024-03-26 15:19 | XMS_ITS | Clinical Summary ---
Author Organization [facility] Address [address] [place] [address] Care Team Providers Care Glass Breaker Name Role Phone Ely Whitehead MD Primary Care Provider Source Comments You are receiving this document as you are listed as the primary care provider,follow-up provider, or the patient has been referred to you for consultation.This is in compliance with the Medicare andUniversity [facility] Medical Centercaid EHR Incentive Program,which states Providers who transition their patient to another setting of careor provider of care or refers their patient to another provider of care shouldprovide summary care record for each transition of care or referral. [facility] Center[facility] Allergies Active Allergy Reactions Criticality Noted Date [...] 04/12/2023 Active Cholecalciferol (VITAMIN D3) 1.25 MG (48553 UT) TABS 05/27/2022 Active Active Problems Problem Noted Date Diagnosed Date Prediabetes 04/12/2023 Varicose veins of left lower extremity with comp lications 05/18/2022 Overview: Added automatically from request for surgery [id number] Hyperlipidemia 03/16/2022 Essential hypertension Resolved Problems Problem Noted Date Diagnosed Date Resolved Date Carotid artery narrowing 03/05/2020 Overview: Left superior cornu of thyroid cartilage exerts localized mass effect on the mid cervical portion of the left ICA resulting in narrowing of 65% on CTA at in 02/2020. Right-sided tinnitus 03/05/2020 021 Macromastia 05/21/2019 02/19/2020 Overview: Added automatically from request for surgery [id number] Palpitations 02/04/2019 03/16/2021 Overview: Ziopatch 12/2018 showed [...] Multidose Vial 0 .25 (6-35 Mos) 05/05/2020 [id number] 09/01/2009 HepB Adult (Engerix-B, 20+ y rs, 3 dose series) 04/03/2007,11/13/2006,10/08/2006 HepB, Unspecified Formulation 04/03/2007, 007,10/08/2006 IPV (Polio) 05/08/1963,,01/26/1962,1961 Influenza (Flucelvax), Prese rv Free QIV 05/17/2022,06/12/2021 Influenza IIV4 (Quadrivalent ) 0.5mL (09249) 05/05/2019,06/08/2018,06/04/2017,2012,09/01/2009 Influenza, Unspecified Formulation 06/04/2017 Moderna 12+ [...] CDT Oxygen Saturation 99% 10/25/2017 5:10 PM CONSTRUCTION SUPERVISOR/CARPENTER Inhaled Oxygen Concentration - - Weight 73.1 [...] Direct LDL(If Needed) (04/12/2023 12:12 PM CDT) [facility] Cholesterol 203(H) 0 - 199 mg/dL 04/12/2023 1:41 PM CDT [facility] Triglyceride 70 <=149 mg/dL 04/12/2023 1:41 PM T [facility] HDL Cholesterol 63 >=40 mg/dL 3 1:41 PM CDT [facility] LDL, Calculated 126 <130 mg/dL 3 1:41 PM T [facility] Non HDL Chol, Calculated 140 <=159 mg/dL 04/12/2023 1:41 PM T [facility] Cholesterol/HDL Ratio 3.2 04/12/2023 1:41 PM [facility] Hours Fasting 12.0 8 - 12 Hours 04/12/2023 1:41 PM [facility] Blood Venipuncture / Unknown 04/12/2023 12:12 PM CDT 04/12/2023 12:12 PM CDT Ely Whitehead MD LAB[facility] [address] [place] [address], [facility] [phone] * Hgb A1C (04/12/2023 12:12 PM CDT) [facility] Hemoglobin A1C (Rapid) 5.5 <=5.6 % 04/12/2023 12:37 PM CDT [facility] Estimated Average Glucose (Calc) 111 < 117 mg/dL 04/12/2023 12:37 PM [facility] Comment:Estimated average gl ucose (eAG) converts A1c into glucose units (mg/dL) and estimates average glucose over the past approximately 3 months. The eAG reference interval (<117 mg/dL) corresponds to an A1c of <5.7%. Blood Venipuncture / Unknown 04/12/2023 12:12 PM CDT 04/12/2023 12:12 PM CDT Narrative [facility] - 04/12/2023 12:37 PM CDT The test method used for this Hemoglobin A1c result can experience interference from elevated hemoglobin and other hemoglobin variants. In patients with results that do not correlate clinically, contact the lab for further direction. Ely Whitehead MD [facility] [address] [place] [address], [facility] [phone] * PAP Test (04/12/2023 11:56 AM CDT) Case Report Pap ? Case: [id number] ? Authorizing Provider: ??Ely Whitehead MD Collected: ? 04/12/2023 1156 ? Ordering Location: ? [facility] Received: ?04/12/2023 1300 ? First Screen: ?Minda Le ? Rescreen: ?Lily Jolly ? Specimen: ?Pap Test, Routine, Cervix/Endocervix ? 04/23/2023 3:28 PM CDT [facility] Pap Specimen Adequacy Satisfactory for evaluation, endocervical/rockwell sformation zone component present. 04/23/2023 3:28 PM CDT [facility] Pap Interpretation (NILM) Negative for intraepithelial lesion or malignancy. 04/23/2023 3:28 PM CDT [facility] Pap Disclaimer The Pap test is a screening test to aid in the detection of cervical and vaginal cancers and their precursor lesions. It is not a diagnostic procedure and should not be used as the sole means of detecting malignancy. Both false-positive and false-negative results may occur. 04/23/2023 3:28 PM CDT [facility] Gross Description The specimen is received in SurePath fixative and properly labeled. 1 Pap-stained SurePath slide is prepared. 04/23/2023 3:28 PM CDT [facility] Embedded Images 3:28 PM CDT [facility] Other Specimen Type ENTIRE ENDOCERVIX / Unknown 04/12/2023 11:56 AM CDT 04/12/2023 1:00 PM CDT Comment:LMP: No LMP recorded . Patient has had an ablation. Ely Whitehead MD LAB PATHOLOGY Performing Organization Address City/State/[facility] Co de Phone Number [facility] [address] * MM Mammogram Screening Bilat W [...] - 02/04/2018 5:50 PM CDT Performed at [address] [address] CLIA number [id number] Ely Whitehead MD LAB_[address] [place] [address] * Hepatitis C Antibody, with Reflex (12/01/2015 12:36 PM CDT) Hepatitis C Antibody Nonreactive Non-React norah HP CONVERSION 12/01/2015 12:3 6 PM CDT 12/01/2015 3:15 PM CDT Narrative HP CONVERSION - 12/01/2015 5:59 PM CDT Performed at [address] [place] [address] [place] number [id number] Ely Whitehead MD LAB_1 HP CONVERSION from Last 3 Months or Most Recently Relevant to Health Maintenance Advance Directives * Full Code (Latest Code Status on File) Date Activated Date Inactivated Comments 01/03/2013 9:37 AM 01/03/2013 6:20 PM Care Teams Glass Breaker Relationship Specialty [place] [address] [place] [address] PCP - General 02/16/12
--- OUTSIDE RECORDS SUMMARY | 2024-03-26 15:20 | XMS_ITS | Encounter Summary ---
Author Organization [facility] Address [address] [place] [address]. [place] [address] Care Team Providers Care Gusset Edger Name Role Phone Ely Whitehead MD Primary Care Provider [phone] Encounter Details Date Type Department Care Team (Late st Contact Info) Description 05/14/2018 [facility] Medical Advice [facility] [address] [facility] 4th [place] [address] Ze Pierson MD [address] [facility] [address] [place] [address] Social History Tobacco Use Types [...] on filedocumented in this encounter Care Teams Gusset Edger Relationship Specialty Start Date End Date Ely Whitehead [facility] [address] [place] [address] PCP - General Family Practice 10/08/14 documented as of this encounter
--- OUTSIDE RECORDS SUMMARY | 2024-03-26 15:20 | XMS_ITS | Encounter Summary ---
Author Organization [facility] Address [address] [place] [address]. [place] [address] Care Team Providers Care Second Crusher Name Role Phone Ely Whitehead MD Primary Care Provider [phone]- [phone] Reason for Visit * Reason Onset Date Comments Appointment 04/23/2018 Encounter Details Date Type Department Care Team (Late st Contact Info) Description 04/23/2018 Telephone [facility] N[facility] and Th[facility] [address] [facility] 4th [place] [address] Ely Whitehead MD [facility] [id number] [place] [address] [place] [address] Appointment Social History Tobacco Use [...] on filedocumented in this encounter Care Teams Second Crusher Relationship Specialty Start Date End Date Ely Whitehead MD RAMIRO [place] [address] [place] [address] [place] [address] PCP - General Family Practice 10/08/14 documented as of this encounter
--- OUTSIDE RECORDS SUMMARY | 2024-03-26 15:20 | XMS_ITS | Referral Summary ---
Author Organization [place] Address [address] [place] [address]. [place] [address] Care Team Providers Care Food Service Manager Name Role Phone Ely Whitehead MD [...] of Treatment Not on file Care Teams Food Service Manager Relationship Specialty Start Date End Date Ely Whitehead MD [facility] [address] [place] [address] PCP - General Family Practice 10/08/14
== END 2024-03-26 08:28 | disposition home or self-care (01) ==
LOC: NFLDREF 15:17
PROVIDERS: PCP Physician Assistant Medical; Referring Provider Physician Assistant Medical; Visit Provider Physician Assistant Medical
DX: Z86.39 Personal history of other endocrine, nutritional and metabolic disease (principal)
CPT/HCPCS: 80061

== ENCOUNTER 2024-03-31 13:27 | Outpatient (CLI) | payer BC, SELFPAY ==
--- OUTSIDE RECORDS SUMMARY | 2024-03-31 13:30 | XMS_ITS | Clinical Summary ---
Author Organization [facility] Address [address] [place] [address] Care Team Providers Care Automatic Cigar Wrapper Tender Name Role Phone Ely Whitehead MD Primary Care Provider Source Comments You are receiving this document as you are listed as the primary care provider,follow-up provider, or the patient has been referred to you for consultation.This is in compliance with the Medicare andL[facility] Centercaid EHR Incentive Program,which states Providers who transition their patient to another setting of careor provider of care or refers their patient to another provider of care shouldprovide summary care record for each transition of care or referral. [facility] Allergies Active Allergy Reactions Criticality Noted Date [...] 04/12/2023 Active Cholecalciferol (VITAMIN D3) 1.25 MG (53153 UT) TABS 05/27/2022 Active Active Problems Problem Noted Date Diagnosed Date Prediabetes 04/12/2023 Varicose veins of left lower extremity with comp lications 05/18/2022 Overview: Added automatically from request for surgery [id number] Hyperlipidemia 03/16/2022 Essential hypertension Resolved Problems Problem Noted Date Diagnosed Date Resolved Date Carotid artery narrowing 03/05/2020 Overview: Left superior cornu of thyroid cartilage exerts localized mass effect on the mid cervical portion of the left ICA resulting in narrowing of 65% on CTA at in 02/2020. Right-sided tinnitus 03/05/2020 021 Macromastia 05/21/2019 02/19/2020 Overview: Added automatically from request for surgery [id number] Palpitations 02/04/2019 03/16/2021 Overview: Ziopatch 12/2018 showed [...] Multidose Vial 0 .25 (6-35 Mos) 05/05/2020 [id number] 09/01/2009 HepB Adult (Engerix-B, 20+ y rs, 3 dose series) 04/03/2007,11/13/2006,10/08/2006 HepB, Unspecified Formulation 04/03/2007, 007,10/08/2006 IPV (Polio) 05/08/1963,,01/26/1962,1961 Influenza (Flucelvax), Prese rv Free QIV 05/17/2022,06/12/2021 Influenza IIV4 (Quadrivalent ) 0.5mL (23190) 05/05/2019,06/08/2018,06/04/2017,2012,09/01/2009 Influenza, Unspecified Formulation 06/04/2017 Moderna 12+ [...] CDT Oxygen Saturation 99% 10/25/2017 5:10 PM SIGNAL HELPER Inhaled Oxygen Concentration - - Weight 73.1 [...] Direct LDL(If Needed) (04/12/2023 12:12 PM CDT) [facility] Cholesterol 203(H) 0 - 199 mg/dL 04/12/2023 1:41 PM CDT [facility] Triglyceride 70 <=149 mg/dL 04/12/2023 1:41 PM T [facility] HDL Cholesterol 63 >=40 mg/dL 3 1:41 PM CDT [facility] LDL, Calculated 126 <130 mg/dL 3 1:41 PM T [facility] Non HDL Chol, Calculated 140 <=159 mg/dL 04/12/2023 1:41 PM T [facility] Cholesterol/HDL Ratio 3.2 04/12/2023 1:41 PM [facility] Hours Fasting 12.0 8 - 12 Hours 04/12/2023 1:41 PM [facility] Blood Venipuncture / Unknown 04/12/2023 12:12 PM CDT 04/12/2023 12:12 PM CDT Ely Whitehead MD LAB_1 [facility] [address] [place] [address], [facility] [phone] * Hgb A1C (04/12/2023 12:12 PM CDT) [facility] Hemoglobin A1C (Rapid) 5.5 <=5.6 % 04/12/2023 12:37 PM CDT [facility] Estimated Average Glucose (Calc) 111 < 117 mg/dL 04/12/2023 12:37 PM [facility] Comment:Estimated average gl ucose (eAG) converts A1c into glucose units (mg/dL) and estimates average glucose over the past approximately 3 months. The eAG reference interval (<117 mg/dL) corresponds to an A1c of <5.7%. Blood Venipuncture / Unknown 04/12/2023 12:12 PM CDT 04/12/2023 12:12 PM CDT Narrative [facility] - 04/12/2023 12:37 PM CDT The test method used for this Hemoglobin A1c result can experience interference from elevated hemoglobin and other hemoglobin variants. In patients with results that do not correlate clinically, contact the lab for further direction. Ely Whiethead MD LAB_1 [facility] [address] [place] [address], [facility] [phone] * PAP Test (04/12/2023 11:56 AM CDT) Case Report Pap ? Case: [id number] ? Authorizing Provider: ??Ely Whitehead MD Collected: ? 04/12/2023 1156 ? Ordering Location: ? [facility] Received: ?04/12/2023 1300 ? First Screen: ?Minda Le ? Rescreen: ?Lily Jolly ? Specimen: ?Pap Test, Routine, Cervix/Endocervix ? 04/23/2023 3:28 PM CDT [facility] Pap Specimen Adequacy Satisfactory for evaluation, endocervical/rockwell sformation zone component present. 04/23/2023 3:28 PM CDT [facility] Pap Interpretation (NILM) Negative for intraepithelial lesion or malignancy. 04/23/2023 3:28 PM CDT [facility] Pap Disclaimer The Pap test is a screening test to aid in the detection of cervical and vaginal cancers and their precursor lesions. It is not a diagnostic procedure and should not be used as the sole means of detecting malignancy. Both false-positive and false-negative results may occur. 04/23/2023 3:28 PM CDT [facility] Gross Description The specimen is received in SurePath fixative and properly labeled. 1 Pap-stained SurePath slide is prepared. 04/23/2023 3:28 PM CDT [facility] Embedded Images 3:28 PM CDT [facility] Other Specimen Type ENTIRE ENDOCERVIX / Unknown 04/12/2023 11:56 AM CDT 04/12/2023 1:00 PM CDT Comment:LMP: No LMP recorded . Patient has had an ablation. Ely Whitehead MD LAB PATHOLOGY Performing Organization Address City/State/[facility] Co de Phone Number [facility] [address] * MM Mammogram Screening Bilat W [...] - 02/04/2018 5:50 PM CDT Performed at [address] [address] CLIA number [id number] Ely Whitehead MD LAB_[address] [address] [place] [address] * Hepatitis C Antibody, with Reflex (12/01/2015 12:36 PM CDT) Hepatitis C Antibody Nonreactive Non-React norah HP CONVERSION 12/01/2015 12:3 6 PM CDT 12/01/2015 3:15 PM CDT Narrative HP CONVERSION - 12/01/2015 5:59 PM CDT Performed at [address] [place] [address] [place] number [id number] Ely Whitehead MD LAB_1 HP CONVERSION from Last 3 Months or Most Recently Relevant to Health Maintenance Advance Directives * Full Code (Latest Code Status on File) Date Activated Date Inactivated Comments 01/03/2013 9:37 AM 01/03/2013 6:20 PM Care Teams Automatic Cigar Wrapper Tender Relationship Specialty [place] [address] [place] [address] PCP - General 02/16/12
--- OUTSIDE RECORDS SUMMARY | 2024-03-31 13:30 | XMS_ITS | Encounter Summary ---
Author Organization [place] Address [address] [place] [address]. [place] [address] Care Team Providers Care Frontend Engineer Name Role Phone Ely Whitehead MD Primary Care Provider [phone] Encounter Details Date Type Department Care Team (Late st Contact Info) Description 05/14/2018 [facility] Medical Advice [facility] Ear Nose and Throat [address] [facility] 4th [place] [address] Ze Pierson MD [address] [facility] [address] [place] [address] Social History Tobacco Use Types [...] on filedocumented in this encounter Care Teams Frontend Engineer Relationship Specialty Start Date End Date Ely Whitehead MD [facility] [address] [place] [address] PCP - General Family Practice 10/08/14 documented as of this encounter
--- OUTSIDE RECORDS SUMMARY | 2024-03-31 13:30 | XMS_ITS | Continuity of Care Document ---
Author Organization [place] [facility] [place] Address [address] [place] [address] Care Team Providers Care Cadmium Plater Name Role Phone CLAYTON DC Referring Provider [...] By Organization Details Last Modified Time 03/12/2024 24658 PROCEDURE RECOMMENDATIONS 1. Ultrasound guided foam sclerotherapy of the residual incompetent tributaries and varicosities greater than 3.0mm of the left leg (42501, 46315) - 2 sessions Not available 03/12/2024 15:46:57 Reason for Referral None Reported. Problems Name Status Onset Date Resolution Date Notes Provider Name and Address Organization Details Recorded Time Essential hypertension Active 03/12/20 24 Chapito Mei PA-C [address], [place], [address], [facility] 03/12/2024 15:24:00 Problem Notes None recorded. Procedures Surgical History Date Name Laterality Status Provider Name and Address Organization Details Recorded Time 02/25/20 24 Colonoscopy completed Chapito Mei PA-C [address], [place], [address], [facility] 03/12/2024 15:23:42 06/14/20 20 Orthopedic Surgery completed Chapito Mei PA-C [address], [place], [address], [facility] 03/12/2024 15:23:42 02/24/19 77 Appendectomy completed Chapito Mei PA-C [address], [place], [address], [facility] 03/12/2024 15:23:42 Imaging Results None recorded. Procedure Notes None recorded. Medical Equipment None Reported. Allergies Allergen ID Allergen Name Allergen Category Reaction Reaction Severity Criticality Documentation Date Start Date Code Code System Note Provider Name and Address Organization Details Recorded Time 6074 tetracycl ine medicatio n Not available Not available Not available 03/12/20242008 45718 RxNorm Chapito Mei PA-C [address], [place], [address], [facility] 15:23:14 Medications Name Sig Start Date [...] Updated DateTime 03/12/2024 175.26 cm 22.7 kg/m2 90984.22 g Chapito Mei PA-C [address], [place], [address], [place] [facility] 03/12/2024 15:23:04 Social History Question Answer Notes LastModified by Organizat ion Details LastModified Time Tobacco Smoking Status Never Smoker Chapito Mei PA-C [address] [place], [address], [place] [facility] 03/12/2024 15:23:39 What Is Your Level Of Alcohol Consumption? 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 Information not available 03/12/2024 How Much Tobacco [...] Encounter Closed Date Diagnosis/Indication Diagnosis SNOMED-CT Code 12264 Nurys Veronica MD [address] [address] 03/12/2024 14:49:18 03/15/2024 04:04:34 Pain co-occurrent and due to varicose veins of left leg [id number] 12590 Nurys Veronica MD [place] [address] [address] [facility],[address] [address] 03/12/2024 14:49:28 03/14/2024 15:00:20 Pain co-occurrent and due to varicose veins of left leg [id number] 9102 Health Concerns Section Related Observation LastModified by Organization Detai ls LastModified Time None Recorded Concern Status LastModified by Organization Details LastModified Time None Recorded Payers Encounter Date Sequence Insurance Name Policy Number Policy De La Garza Covered Member ID De La Garza Member ID Guarantor Name 03/12/2024 1 [facility] [id number] Irish Holley [id number] Irish Holley Notes Date Note Type Note [...] following? None Nurys Veronica MD [address], [place], [address], [place] [facility] 03/12/2024 16:14:45 [...] -3 or more allergies Nurys Veronica MD [address], [place], [address], [place] [facility] 03/12/2024 16:16:50 OBGyn Episode No OBEpisode recorded.
--- OUTSIDE RECORDS SUMMARY | 2024-03-31 13:30 | XMS_ITS | Referral Summary ---
Author Organization [facility] Address [address] [place] [address]. [place] [address] Care Team Providers Care Director Of Restaurants Name Role Phone Ely Whitehead MD Primary [...] of Treatment Not on file Care Teams Director Of Restaurants Relationship Specialty Start Date End Date Ely Whitehead MD [facility] [address] [place] [address] PCP - General Family Practice 10/08/14
--- OUTSIDE RECORDS SUMMARY | 2024-03-31 13:30 | XMS_ITS | Clinical Summary ---
Author Organization [facility] Address [place], [place] [address] Care Team Providers Care Coping Machine Operator Name Role Phone Ely Whitehead MD Primary Care Provider [phone] Allergies Active Allergy Reactions Criticality Noted Date [...] Department Care Team Description 03/05/2024 Lab Requisition [facility] [phone] Justine Kurtz MD 02/22/2024 Lab Requisition [facility] [phone] Jennifer Hollis PA-C from Last 3 Months [...] Body Mass Index 25.04 08/15/2013 4:26 PM HEAVY EQUIPMENT ENGINE MECHANIC Plan of Treatment Health Maintenance Due Date [...] through age 75 09/26/202209/26 (Completed outside of [facility]) Influenza for age 50-64 04/27/2024 05/22/2013 Pap [...] EVENT Routine 02/21/2024 12 :00 PM CDT ELECTRIC METER TECHNICIAN THIN PREP PAP SCREEN IMAGED Routine 02/21/2024 [...] Kurtz MD LAB BILL O [facility] [address] [place] [address], * PATH TISSUE EXAM (03/05/2024 12:55 PM CDT) Case Report Pathology Report ?Case: [id number] ? Authorizing Provider: ??Justine Kurtz ?Collected: ? 03/05/2024 1255 ? MD Celina ? Ordering Location: ? [facility] ?Received: ?03/05/2024 1823 ? Pathologist: ? Mamta Mccain MD ? Specimen: ?Cervical Polyp ? 03/07/2024 9:35 AM CDT [facility] Final Diagnosis A) CERVIX, POLYPECTOMY: 1. Benign endocervical polyp with reactive changes 2. Negative for glandular neoplasia, squamous intraepithelial lesion, and malignancy 03/07/2024 9:35 AM CDT [facility] Clinical Information Cervical polyp 03/07/2024 9:35 AM CDT [facility] Gross Description A) Received in formalin, labeled with the patient's name and cervical polyp, is a 0.5 x 0.5 x 0.3 cm pink-garcia rubbery polyp. ??Apparent base is inked. ??The specimen is entirely submitted in 1 cassette. TLF 03/05/2024 03/07/2024 9:35 AM CDT [facility] Microscopic Description The final diagnosis is based on microscopic examination of appropriate sections of all specimens. 03/07/2024 9:35 AM CDT [facility] Additional Information Interpreted at [facility] - [address] [place] [address] 03/07/2024 9:[address] [facility] Other (Cervical Polyp) 03/05/2024 12:55 PM CDT 03/05/2024 6:23 PM CDT Justine Kurtz MD PATHOLOGY/ CYTOLOGY Performing Organization Address City/State/[facility] Co de Phone Number [facility] [address] [place] [address], * ELECTRIC METER TECHNICIAN THIN PREP PAP SCREEN IMAGED (02/21/2024 12:00 PM CDT) Case Report Gynecologic Cytology Report ? Case: [id number] ? Authorizing Provider: ??Jennifer Hollis PA-C ?Collected: ? 02/21/2024 1200 ? Ordering Location: ? [facility] ?Received: ?02/25/2024 1610 ? First Screen: ?Afsaneh Leon ? Specimen: ?ELECTRIC METER TECHNICIAN ThinPrep Vial Screening, Cervical ? 03/02/2024 12:58 PM CDT [facility] INTERPRETATION/ RESULT NEGATIVE FOR INTRAEPITHELIAL LESION OR MALIGNANCY (NIL) (none) 03/02/2024 12:[address] [facility] IMEN ADEQUACY Satisfactory for evaluation No endocervical component seen 03/02/2024 12:[address] [facility] HPV REQUEST HPV and PAP 03/02/2024 12:58 PM CDT [facility] Date of LMP 03/02/2024 12:[address] [facility] Comment:menopause Last Pap Date 06/04/2017 03/02/2024 12:[address] [facility] Last Pap Result NIL 12:[address] [facility] Additional Information 03/02/2024 12:[address] [facility] Comment: Interpreted at [facility] - [address], [place] [address] Automated Review Successful 03/02/2024 12:[address] [facility] Comment:Specimen processed s uccessfully by automated baker chef device, ThinPrep Imaging System, [employer] ANCILLARY TESTING ELECTRIC METER TECHNICIAN HPV Ordered, Please see separate report 03/02/2024 12:[address] [facility] Note The pap test [...] and malignant lesions. 03/02/2024 12:58 PM CDT [facility] Other (Cervical) 02/21/2024 12:00 PM CDT 02/25/2024 4:10 PM CDT Jennifer Hollis PA-C PATHOLOGY/CYTOLOGY Performing Organization Address [facility]/ZIP Co de Phone Number [facility] [address] [place] [address], * HPV HIGH RISK (02/21/2024 12:00 PM CDT) TYPE 16 Negative Negative 02/27/2024 6:05 AM CDT [facility] TYPE 18 Negative Negative 02/27/2024 6:05 AM CDT [facility] OTHER HIGH RISK TYPES Negative Negative 02/27/2024 6:05 AM CDT [facility] Other (Cervical) 02/21/2024 12:00 PM CDT 02/25/2024 4:10 PM CDT Narrative [facility] - 02/27/2024 6:05 AM CDT HPV types 16, 18, 31, 33, 35, 39, 45, 51, 52, 56, 58, 59, 66 and 68 DNA were undetectable or below the pre-set threshold. Methodology: Keila Yusra 4800 HPV Test Jennifer Hollis PA-C MICROBIOLOGY Performing Organization Address [facility] Co de Phone Number [facility] [address] [place] [address], from Last 3 Months Care Teams Coping Machine Operator Relationship Specialty [place] [address] [address] [place] [address] PCP - General Family Practice 12/21/22
--- OUTSIDE RECORDS SUMMARY | 2024-03-31 13:30 | XMS_ITS | Encounter Summary ---
Author Organization [facility] Address [address] [place] [address]. [place] [address] Care Team Providers Care Sound Cutter Name Role Phone Ely Whitehead MD Primary Care Provider [phone] Reason for Visit * Reason Onset Date Comments Appointment 04/23/2018 Encounter Details Date Type Department Care Team (Late st Contact Info) Description 04/23/2018 Telephone [facility] Ear Nose and Throat [address] [facility] 4th [place] [address] Ely Whitehead MD [facility] [id number] [place] [address] [place] [address] Appointment Social History Tobacco Use [...] on filedocumented in this encounter Care Teams Sound Cutter Relationship Specialty Start Date End Date Ely Whitehead MD [facility] [place] [address] [place] [address] [place] [address] PCP - General Family Practice 10/08/14 documented as of this encounter
--- OUTSIDE RECORDS SUMMARY | 2024-03-31 13:30 | XMS_ITS | Clinical Summary ---
Author Organization [place] Address [address] [place] [address]. [place] [address] Care Team Providers Care De Icer Kit Assembler Name Role Phone Ely Whitehead MD Primary [...] of Treatment Not on file Care Teams De Icer Kit Assembler Relationship Specialty Start Date End Date Ely Whitehead MD [facility] [address] [place] [address] PCP - General Family Practice 10/08/14
--- OUTSIDE RECORDS SUMMARY | 2024-03-31 13:31 | XMS_ITS | Continuity of Care Document ---
Author Organization [facility] [place] Address [address] [place] [address] Care Team Providers Care Outbound Sales Consultant Name Role Phone CLAYTON DC Referring Provider Assessment No assessment recorded. Plan of Treatment [...] Mei PA-C [address] [place], [address], [facility] 03/12/2024 15:24:00 Problem Notes None recorded. Procedures Surgical History Date Name Laterality Status Provider Name and Address Organization Details Recorded Time 02/25/20 24 Colonoscopy completed Chapito Mei PA-C [address] [place], [phone], [facility] 03/12/2024 15:23:42 06/14/20 20 Orthopedic Surgery completed Chapito Mei PA-C [address], [place], [address], [place] - [facility] 03/12/2024 15:23:42 02/24/19 77 Appendectomy completed Chapito Mei PA-C [address] [place], [address], [facility] 03/12/2024 15:23:42 Imaging Results None recorded. Procedure Notes None recorded. Medical Equipment None Reported. Allergies Allergen ID Allergen Name Allergen Category Reaction Reaction Severity Criticality Documentation Date Start Date Code Code System Note Provider Name and Address Organization Details Recorded Time 6074 tetracycl ine medicatio n Not available Not available Not available 03/12/20242008 60557 RxNorm Chapito Mei PA-C [address] [place], [phone], [facility] 15:23:14 Medications Name Sig [...] Updated DateTime 03/12/2024 175.26 cm 22.7 kg/m2 50342.22 g Chapito Mei PA-C [address] [place], [address], [facility] 03/12/2024 15:23:04 Social History Question Answer Notes LastModified by Organizat ion Details LastModified Time Tobacco Smoking Status Never Smoker Chapito Mei PA-C [address] [place], [address], [facility] 03/12/2024 15:23:39 What Is Your Level Of Alcohol Consumption? 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 Information not available 03/12/2024 How Much Tobacco [...] Encounter Closed Date Diagnosis/Indication Diagnosis SNOMED-CT Code [id number] Nurys Veronica MD [place] [address] [facility],[address] [address] 03/12/2024 14:49:18 03/15/2024 04:04:34 Pain co-occurrent and due to varicose veins of left leg [id number] [id number] Nurys Veronica MD [place] [address] [address] 03/12/2024 14:49:28 03/14/2024 15:00:20 Pain co-occurrent and due to varicose veins of left leg [id number] 9102 Health Concerns Section Related Observation LastModified by Organization Detai ls LastModified Time None Recorded Concern Status LastModified by Organization Details LastModified Time None Recorded Payers Encounter Date Sequence Insurance Name Policy Number Policy De La Garza Covered Member ID De La Garza Member ID Guarantor Name 03/12/2024 1 [facility] [id number] Irish Holley [id number] Irish Holley Notes Date Note Type Note [...] Nurys Veronica MD [address] [place], [address], [facility] - [facility] 03/12/2024 16:14:45 03/12/2024 [...] Veronica MD [address] [place], [address], [facility] - [facility] 03/12/2024 16:16:50 OBGyn Episode No OBEpisode recorded.
--- NOTE | 2024-03-31 13:40 | CRLHL7_ITS ---
For Patients: As a result of the Century Cures Act, medical imaging exams and procedure reports are released immediately into your electronic medical record. You may view this report before your referring provider. If you have questions, please contact your health care provider. BILATERAL SCREENING MAMMOGRAM WITH COMPUTER-AIDED DETECTION AND TOMOSYNTHESIS TECHNIQUE: CC and MLO views were obtained. These mammographic images have been obtained using full-field digital technique. These mammographic images were interpreted with the benefit of computer-aided detection. Breast tomosynthesis was used in this interpretation. COMPARISON FILM: 04/12/23. FINDINGS: The breasts are heterogeneously dense, which may obscure small masses. IMPRESSION: There is no radiographic evidence for malignancy. ASSESSMENT: BI-RADS Category 2: Benign RECOMMENDATION: Routine screening mammogram in 1 year. A lay language report of this examination will be provided to the patient. MALCOLM SPICER M.D. Diagnostic Radiologist [email or web address] Transcribed: 3:[address]/Dictated by: Malcolm Spicer MD @ 04/01/2024 11:23:00 AM (Electronically Signed)
== END 2024-03-31 13:28 | disposition home or self-care (01) ==
LOC: MAMMO 13:28
PROVIDERS: PCP Physician Assistant Medical; Visit Provider Physician Assistant Medical
DX: Z12.31 Encounter for screening mammogram for malignant neoplasm of breast (principal); R92.2 Inconclusive mammogram
CPT/HCPCS: 77063; 77067

== ENCOUNTER 2024-07-14 15:31 | Outpatient (CLI) | payer BC, SELFPAY ==
--- OUTSIDE RECORDS SUMMARY | 2024-07-14 15:34 | XMS_ITS | Clinical Summary ---
Author Organization [facility] Address [address] [place] [address]. [place] [address] Care Team Providers Care Coordinate Measuring Machine Technician Name Role Phone Ely Whitehead MD Primary Care Provider Allergies Active Allergy Reactions Criticality Noted Date Comments Tetracycline Other (See Comments) 07/26/2011 Facial numbness Face numbness Medications Ranitidine HCl (ZANTAC PO) Take 75 mg by mouth daily Active LISINOPRIL PO Take 20 mg by mouth daily Active Cholecalciferol (VITAMIN D) 2000 units tablet Take 2,000 Units by mouth Active omega 3 1000 MG CAPS Take 2 g by mouth Active MAGNESIUM OXIDE PO Take 400 mg by mouth Active mupirocin (BACTROBAN) 2 % ointmentIndicat ions:Sebaceous cyst Apply to left lateral ear canal [...] School Help Needed Not on file 06/13 Comments No Sex and Gender Information Value Date Recorded Sex Assigned at Not on file Legal Sex Female 4:54 AM CLAIMS COORDINATOR Gender Identity Not on file Sexual Orientation Not on file Last Filed Vital Signs Vital Sign Reading Time Taken Comments Blood Pressure 149/81 03/02/2020 5:00 PM CDT Pulse 60 03/02/2020 5:00 PM CDT Temperature 36.4 C (97.6 F) 03/02/2020 2:46 PM CDT Respiratory Rate 16 03/02/2020 7:16 PM CDT Oxygen Saturation 97% 03/02/2020 5:00 PM CDT Inhaled Oxygen Concentration - - Weight 72.1 kg (159 lb) 03/22/2018 12:52 PM CDT Height 175 cm (5' 8.9) 03/22/2018 12:52 PM CDT Body Mass Index 23.55 03/22/2018 12:52 PM CDT Plan of Treatment Not on file Insurance [facility] Care Teams Coordinate Measuring Machine Technician Relationship Specialty Start Date End Date Ely Whitehead MD [facility] [address] [place] [address] PCP - General Family Practice 10/08/14
--- OUTSIDE RECORDS SUMMARY | 2024-07-14 15:34 | XMS_ITS | Encounter Summary ---
Author Organization [facility] Address [address] [place] [address]. [place] [address] Care Team Providers Care Woodworking Machine Feeder Name Role Phone Ely Whitehead MD Primary Care Provider [phone] Reason for Visit * Reason Onset Date Comments Appointment 04/23/2018 Encounter Details Date Type Department Care Team (Late st Contact Info) Description 04/23/2018 [facility] [address] [place] [address] Ely Whitehead MD [facility] [id number] [place] [address] [place] [address] Appointment Social History Tobacco Use Types Packs/Day Years Used Date Smoking Tobacco: Never Smokeless Tobacco: Never Alcohol Use Standard Drinks/Week Comments No 0 (1 standard drink = 0.6 oz pur e alcohol) PHQ-2 Answer Date Recorded PHQ-2 Score 0 03/22/2018 Comments No Sex and Gender Information Value Date Recorded Sex Assigned at Not on file 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
--- OUTSIDE RECORDS SUMMARY | 2024-07-14 15:34 | XMS_ITS | Referral Summary ---
Author Organization [facility] Address [address] [place] [address]. 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
--- OUTSIDE RECORDS SUMMARY | 2024-07-14 15:34 | XMS_ITS | Encounter Summary ---
Author Organization [facility] Address [address], [place] [address] Care Team Providers Care Rubber Insulator Name Role Phone Ely Whitehead MD Primary Care Provider Reason for Visit * Reason Comments Refill lisinopril (ZESTRIL) 10 MG tablet [Pharmacy Med Name: LISINOPRIL 10MG TABLETS] Encounter Details Date Type Department Care Team (Late st Contact Info) Description 07/03/2024 Refill [facility] [address] [place] [address] [place] [id number] [place] [phone] Refill (lisinopril (ZESTRIL) 10 MG tablet [Pharmacy Med Name: LISINOPRIL 10MG TABLETS]) Social History Tobacco Use Types Packs/Day Years [...] on file documented as of this encounter Nursing Notes * Ines Perez APRN, CNP - 07/04/2024 11:46 AM CST See patient comment on routed conversation; no longer intends to follow with Dr. Whitehead due to distance. ANICAL STRIPER * Elsi Wolff - 07/04/2024 10:21 AM CST Medication Refill - Due for Visit Medication still pending, patient is due to be seen in the next 30 days. Called patient, was: Successful in reaching patient. We recently received a refill request for one of your medications. To continue managing your medication refills, your clinician would like to see you for a(n): Patient is due for a: Video/Office Visit Patient declined to schedule due to: Pt states they will no longer have this prescription filled byDr. Whitehead as they wanted to see a provider who is closer to home due to accessibility reasons. ANICAL STRIPER * Oleksandr Hassan, JOEL - 07/04/2024 9:13 AM CST Further Assistance Needed on Refill from Clinical Assistant Professor Patient is due for Qualifying Visit and labs. Medication is still pending. Patient is due for an Office/Video Visit in the next 30 days. Call Patient and document using .EntitleE. After attempting to schedule patient: If appointment is scheduled within 60 days: Please route to: Refill pool If unable to schedule appointment or scheduled greater than 60 days: Please route to: Ely Whitehead MD Requested Prescriptions Pending Prescriptions Disp Refills lisinopril (ZESTRIL) 10 MG tablet [Pharmacy Med Name: LISINOPRIL 10MG TABLETS] 90 Tablet 0 Sig: TAKE 1 TABLET(10 MG) BY MOUTH DAILY FOR HIGH BLOOD PRESSURE ANICAL STRIPER documented in this encounter Plan of Treatment Not on file documented as of this encounter Visit Diagnoses Diagnosis Essential hypertension (HRC) Unspecified essential hypertension documented in this encounter Care Teams Rubber Insulator Relationship Specialty [place] [address] [address] [place] [address] PCP - General 02/16/12 documented as of this encounter
--- OUTSIDE RECORDS SUMMARY | 2024-07-14 15:34 | XMS_ITS | Clinical Summary ---
Author Organization [facility] Address [address] [place] [address] Care Team Providers Care Electrical Engineering Manager Name Role Phone Ely Whitehead MD Primary Care Provider Source Comments You are receiving this document as you are listed as the primary care provider,follow-up provider, or the patient has been referred to you for consultation.This is in compliance with the Medicare and[facility] Cent[facility]aid EHR Incentive Program,which states Providers who transition their patient to another setting of careor provider of care or refers their patient to another provider of care shouldprovide summary care record for each transition of care or referral. [facility] Allergies Active Allergy Reactions Criticality Noted Date [...] 04/12/2023 Active Cholecalciferol (VITAMIN D3) 1.25 MG (36511 UT) TABS 05/27/2022 Active Active Problems Problem Noted Date Diagnosed Date Prediabetes 04/12/2023 Varicose veins of left lower extremity with comp lications 05/18/2022 Overview (05/18/2022): Added automatically from request for surgery [id number] Hyperlipidemia 03/16/2022 Essential hypertension Resolved Problems Problem Noted Date Diagnosed Date Resolved Date Carotid artery narrowing 03/05/2020 Overview (03/15/2021): Left superior cornu of thyroid cartilage exerts localized mass effect on the mid cervical portion of the left ICA resulting in narrowing of 65% on CTA at in 02/2020. Right-sided tinnitus 03/05/2020 021 Macromastia 05/21/2019 02/19/2020 Overview (05/21/2019): Added automatically from request for surgery [id number] Palpitations 02/04/2019 03/16/2021 Overview (02/04/2019): Ziopatch 12/2018 showed benign non-sustained supraventricular tachycardia. Myofascial pain 06/11/2018 03/16/2021 Neck pain 06/11/2018 03/16/2021 Cervicocranial syndrome 06/11/201802/25 Costochondral chest pain 08/15/2013 Stress incontinence, female 03/25/2012 03/31/2013 Deviated nasal septum 03/25/20122020 GERD (gastroesophageal reflux disease) 03/25/2012 03/17/2022 HTN (hypertension) 6 Overview (03/31/2016): Cr 0.8, Na 140, K 4.3 on labs 02/2015 at work. IFG (impaired fasting glucose) 03/16/2021 Encounters Date Type Department Care Team Description 07/03/2024 Refill [facility] [address] [place] [address] Ely Whitehead MD Refill (lisinopril (ZESTRIL) 10 MG tablet [Pharmacy Med Name: LISINOPRIL 10MG TABLETS]) from Last 3 Months Immunizations Name Administration Dates Next Due Flu Vac Preserv Free (3+yrs) 05/11/2015,06/24/20 10,07/29/2009 Flublok (RIV4) 05/23/2023 Fluzone Qiv Multidose Vial 0 .25 (6-35 Mos) 05/05/2020 [id number] 09/01/2009 HepB Adult (Engerix-B, 20+ y rs, 3 dose series) 04/03/2007,11/13/2006,10/08/2006 HepB, Unspecified Formulation 04/03/2007, 007,10/08/2006 IPV (Polio) 05/08/1963,,01/26/1962,1961 Influenza (Flucelvax), Prese rv Free QIV 05/17/2022,06/12/2021 Influenza IIV4 (Quadrivalent ) 0.5mL (21198) 05/05/2019,06/08/2018,06/04/2017,2012,09/01/2009 Influenza, Unspecified Formulation 06/04/2017 Moderna Bivalent 12+ 05/17/2022 Moderna COVID-19 12+ 05/23/2023 Moderna Monovalent 12+ 02/07/2022,2020,12/21/2020,2020 OPV, Trivalent (Orimune [...] Aisha Brother 1 Elvis Alive Brother 2 Alexx Alive Brother 3 Rafiq Alive Maternal Grandfather [...] 62 04/12/2023 11:02 AM CDT Temperature 36.9 C (98.5 F) 09/29/2019 9:08 AM CONTRACT ADMINISTRATOR Respiratory Rate 17 06/11/2020 1:07 PM CDT Oxygen Saturation 99% 10/25/2017 5:10 PM CONTRACT ADMINISTRATOR Inhaled Oxygen Concentration - - Weight 73.1 [...] 04/12/2024 04/12/2023, 03/17/2022, 03/16/2021, Additional history exists COVID-19 Vaccine ( season) 2024 05/23/2023, 05/17/2022, 02/07/2022, Additional history exists Influenza (#1) 2024 05/23/2023, 04/28, 06/12/2021, Additional history exists Cholesterol 04/12/2028 04/12/2023, 02/25, 12/07/2018, Additional history exists Colonoscopy 03/01/2032 03/01/2022, 03/28 (Completed) DTaP/Tdap/Td (3 - Tdap) 03/17/2032 03/17/20, 03/25/2012, 09/15/2003, Additional history exists IPV (Polio) Completed 05/08/1963, 04/27, 03/03/1962, Additional history exists HepB Completed 04/03/2007, 03/2007, 11/13/2006, Additional history exists Hep C Screening (Preventive Services) Completed 12/01/2015 HIV Screening (Preventive Services) Completed 02/04/2018 Zoster/Shingles Completed 05/28/2020, 04/27, 02/19/2020 Cervical Cancer Screening Discontinued 2022, 01/30/2018, 04/15/2014 RSV Completed 05/23/2023 HepA Aged Out No longer eligi ble based on patient's age to complete this topic Hib Aged Out No longer eligi ble based on patient's age to complete this topic Infant RSV Aged Out No longer eligi ble based [...] Direct LDL(If Needed) (04/12/2023 12:12 PM CDT) Cholesterol 203(H) 0 - 199 mg/dL 04/12/2023 1:41 PM CDT [facility] Triglyceride 70 <=149 mg/dL 04/12/2023 1:41 PM CDT [facility] HDL Cholesterol 63 >=40 mg/dL 3 1:41 PM CDT [facility] LDL, Calculated 126 <130 mg/dL 3 1:41 PM CDT [facility] Non HDL Chol, Calculated 140 <=159 mg/dL 04/12/2023 1:41 PM CDT [facility] Cholesterol/HDL Ratio 3.2 04/12/2023 1:41 PM CDT [facility] Hours Fasting 12.0 8 - 12 Hours 04/12/2023 1:41 PM CDT [facility] Blood Venipuncture / Unknown 04/12/2023 12:12 PM CDT 04/12/2023 12:12 PM CDT Ely Whitehead MD LAB_1 [facility] [address] [place] [address], [facility] [phone] * Hgb A1C (04/12/2023 12:12 PM CDT) Hemoglobin A1C (Rapid) 5.5 <=5.6 % 04/12/2023 12:37 PM CDT [facility] Estimated Average Glucose (Calc) 111 < 117 mg/dL 04/12/2023 12:37 PM CDT [facility] Comment:Estimated average gl ucose (eAG) converts A1c into glucose units (mg/dL) and estimates average glucose over the past approximately 3 months. The eAG reference interval (<117 mg/dL) corresponds to an A1c of <5.7%. Blood Venipuncture / Unknown 04/12/2023 12:12 PM CDT 04/12/2023 12:12 PM CDT Narrative [facility] - 04/12/2023 12:37 PM CDT The test method used for this Hemoglobin A1c result can experience interference from elevated hemoglobin and other hemoglobin variants. In patients with results that do not correlate clinically, contact the lab for further direction. Ely Whitehead MD LAB_1 [facility] [address] [place] [address], [facility] [phone] * PAP Test (04/12/2023 11:56 AM CDT) Case Report Pap Case: [id number] Authorizing Provider: Ely Whitehead MD Collected: 04/12/2023 1156 Ordering Location: [facility] Received: 04/12/2023 1300 First Screen: Minda Le Rescreen: Lily Jolly Specimen: Pap Test, Routine, Cervix/Endocervix 04/23/2023 3:28 PM CDT [facility] Pap [...] an ablation. Ely Whitehead MD LAB PATHOLOGY [facility] [address] [place] [address] * MM Mammogram Screening Bilat W [...] Screening Bilat W 3D Isaiah W CAD FINDINGS: Bilateral screening mammogram was performed with the assistance of Computer-Aided Detection and breast tomosynthesis. The breasts are heterogeneously dense, which may obscure small masses. There are changes of breast reduction. There is no radiographic evidence of malignancy. Ely Whitehead MD RAD NEHEMIAS * COLONOSCOPY S (03/01/2022) Ely Whitehead MD DUMMY/OTHER/AR * HIV 1/2 Ag/Ab 4th Generation (02/04/2018 7:45 AM CDT) HIV-1 p24 Ag and HIV-1/HIV-2 Ab Nonreactive Nonreactive PN SOFT 02/04/2018 7:45 AM CDT 02/04/2018 12:58 PM CDT Narrative PN SOFT - 02/04/2018 5:50 PM CDT Performed at [address] [address] CLIA number [id number] Ely Whitehead MD LAB_1 Performing Organization Address [facility] de Phone Number PN SOFT [address] [place] [phone] * Hepatitis C Antibody, with Reflex (12/01/2015 12:36 PM CDT) Hepatitis C Antibody Nonreactive Non-React norah HP CONVERSION 12/01/2015 12:3 6 PM CDT 12/01/2015 3:15 PM CDT Narrative HP CONVERSION - 12/01/2015 5:59 PM CDT Performed at [address] [address] CLIA number [id number] Ely Whitehead MD LAB_1 Performing Organization Address [facility] Co de Phone Number HP CONVERSION from Last 3 Months or Most Recently Relevant to Health Maintenance Advance Directives * Full Code (Latest Code Status on File) Date Activated Date Inactivated Comments 01/03/2013 9:37 AM 01/03/2013 6:20 PM Care Teams Electrical Engineering Manager Relationship Specialty [place] [address] [place] [address] PCP - General 02/16/12
--- OUTSIDE RECORDS SUMMARY | 2024-07-14 15:34 | XMS_ITS | Continuity of Care Document ---
Author Organization [facility], [place] Address [address] [place] [address] Care Team Providers Care Neck Band Operator Name Role Phone CLAYTON DC Referring Provider [phone] Assessment No assessment recorded. Plan of Treatment Reminders Order Date Submit Date Provider Last Modified By Organization Details Last Modified Time Details Appointments Medical Sclero 20 Min- 2023 11:50A [facility] Not available Not available Not available Medical Scl[facility] 20 Min-DREA 2023 11:50A [facility] Not available Not available Not available Lab None recorde d. Referral None recorde d. Procedures None recorde d. Surgeries None recorde d. Imaging None recorde d. Medication Orders None recorde d. Patient TargetsNo targets recorded. Patient InstructionsNo instructions recorded. Reason for Referral None Reported. Problems Name Problem SNOMED Code Status Onset Date Resolution Date Notes Provider Name and Address Organization Details Recorded Time Essential hypertension 01024785 Active 2023 Chapito Mei PA-C [address] [place], [address] , [facility] - [facility] 15:24:00 Problem Notes None recorded. Procedures Surgical History Date Name Laterality Status Provider Name and Address Organization Details Recorded Time 07/03/20 24 PVC - Ultrasound Guided Sclerotherapy completed Jayla Wells [facility] 07/03/2024 13:17:18 06/10/20 24 PVC - EVRFA: Single Vein completed Jayla Wells [facility] 06/10/2024 14:40:04 02/25/20 24 Colonoscopy completed [address] [place], [address], [facility] 03/12/2024 15:23:42 06/14/20 20 Orthopedic Surgery completed Chapito Mei PA-C [address] [place], [address], [facility] 03/12/2024 15:23:42 02/24/19 77 Appendectomy completed Chapito Mei PA-C [address] [place], [address], [facility] 03/12/2024 15:23:42 Imaging Results None recorded. Procedure Notes None recorded. Medical Equipment None Reported. Allergies Allergen ID Allergen Name Allergen Category Reaction Reaction Severity Criticality Documentation Date Start Date Code Code System Note Provider Name and Address Organization Details Recorded Time 6074 tetracycl ine medicatio n Not available Not available Not available 03/12/20242008 05364 RxNorm Chapito Mei PA-C [address] [place], [address], [facility] 15:23:14 Medications Name Sig Start Date Stop Date Status Note LastModified by Organization Details LastModified Time ciprofloxac in 500 mg tablet TAKE 1 TABLET BY MOUTH TWICE DAILY active Not Available Not Available No t Available sulfamethox azole 800 mg-trimetho prim 160 mg [...] Available Not Available No t Available Vitals None Recorded Social History Question Answer Notes LastModified by Organizat ion Details LastModified Time Tobacco Smoking Status Never Smoker Chapito Mei PA-C [address] [place], [address], [facility] 03/12/2024 15:23:39 What Is Your Level Of Alcohol Consumption? 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 No Information not available 03/12/2024 Sex: Unknown Functional Status None recorded. Mental Status None recorded. Family History Relationship Description Onset Age of this Age Resolved Age Notes LastModified by Organization Details LastModified Time Mother Varicose veins of lower extremity 40 77 Not available 2023 15:23:18 Medical History Condition Response Hypertension Y Gynecological History Statement/Question Response How many childrens do you have? 3 Number of Miscarriages 2 Number of Pregnancies 5 Are you or planning to become p regnant? N Are you ? N Obstetrics History GPAL:G 0 P 0 0 0 0 Past Encounters Encounter ID Performer Location Encounter Start Date Encounter Closed Date Diagnosis/Indication Diagnosis SNOMED-CT Code Diagnosis ICD10 Code [id number] MD Chen Alvarado [address] [place] [address] 06/04/2024 14:46:40 06/10/2024 04:06:41 Pain co-occurrent and due to varicose veins of left leg [id number] I83.812 [id number] MD Chen Alvarado [address] [place] [address] 06/04/2024 14:46:46 06/09/2024 15:31:13 Pain co-occurrent and due to varicose veins of left leg [id number] 3196955 I83.812 [id number] MD Chen Alvarado [address] [place] [address] 06/10/2024 13:51:25 06/13/2024 09:23:07 Pain co-occurrent and due to varicose veins of left leg [id number] [id number] I83.812 [id number] MD Chen Alvarado [address] [place] [address] 07/03/2024 12:45:25 07/04/2024 10:47:43 Pain co-occurrent and due to varicose veins of left leg [id number] 7808688 I83.812 Health Concerns Section Related Observation LastModified by Organization Detai ls LastModified Time None Recorded Concern Status LastModified by Organization Details LastModified Time None Recorded Payers Encounter Date Sequence Insurance Name Policy Number Policy De La Garza Covered Member ID De La Garza Member ID Guarantor Name 07/03/2024 1 [id number] Irish Holley [id number] Irish Holley OBGyn Episode No OBEpisode recorded.
--- OUTSIDE RECORDS SUMMARY | 2024-07-14 15:34 | XMS_ITS | Continuity of Care Document ---
Author Organization [facility], [place] Address [address] [place] [address] Care Team Providers Care Human Insights Lead Ads Marketing Name Role Phone CLAYTON DC Referring Provider [...] Address Organization Details Recorded Time Essential hypertension 93938615 Active 2023 Chapito Mei PA-C [address], [address] , [facility] - [facility] 15:24:00 Problem Notes None recorded. Procedures Surgical History Date Name Laterality Status Provider Name and Address Organization Details Recorded Time 07/03/20 24 PVC - Ultrasound Guided Sclerotherapy completed Jayla Wells [facility] 07/03/2024 13:17:18 06/10/20 24 PVC - EVRFA: Single Vein completed Jayla Wells [facility] 06/10/2024 14:40:04 02/25/20 24 Colonoscopy completed [address] [place], [address], [facility] 03/12/2024 15:23:42 06/14/20 20 Orthopedic Surgery completed Chapito Mei PA-C [address] [place], [address], [facility] 03/12/2024 15:23:42 02/24/19 77 Appendectomy completed Chapito Mei PA-C [address] [place], [address], [facility] 03/12/2024 15:23:42 Imaging Results None recorded. Procedure Notes None recorded. Medical Equipment None Reported. Allergies Allergen ID Allergen Name Allergen Category Reaction Reaction Severity Criticality Documentation Date Start Date Code Code System Note Provider Name and Address Organization Details Recorded Time 6074 tetracycl ine medicatio n Not available Not available Not available 03/12/20242008 69049 RxNorm Chapito Mei PA-C [address] [place], [address], [facility] 15:23:14 Medications Name Sig Start Date [...] Mei PA-C [address] [place], [address], [facility] 03/12/2024 15:23:39 What Is Your Level Of Alcohol Consumption? 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 Information not available 03/12/2024 How Much Tobacco [...] Diagnosis/Indication Diagnosis SNOMED-CT Code Diagnosis ICD10 Code [id number] MD Chen Alvarado [address] [place] [address] 06/04/2024 14:46:40 06/10/2024 04:06:41 Pain co-occurrent and due to varicose veins of left leg [id number] 0132118 I83.812 [id number] MD Chen Alvarado [address] [place] [address] 06/04/2024 14:46:46 06/09/2024 15:31:13 Pain co-occurrent and due to varicose veins of left leg 0360983521 [id number] I83.812 [id number] MD Chen Alvarado [address] [place] [address] 06/10/2024 13:51:25 06/13/2024 09:23:07 Pain co-occurrent and due to varicose veins of left leg [id number] 5821783 I83.812 Health Concerns Section Related Observation LastModified by Organization Detai ls LastModified Time None Recorded Concern Status LastModified by Organization Details LastModified Time None Recorded Payers Encounter Date Sequence Insurance Name Policy Number Policy De La Garza Covered Member ID De La Garza Member ID Guarantor Name 06/10/2024 1 [facility] [id number] Irish Holley [id number] Irish Holley OBGyn Episode No OBEpisode recorded.
--- OUTSIDE RECORDS SUMMARY | 2024-07-14 15:34 | XMS_ITS | Clinical Summary ---
Author Organization [facility] Address [place], [place] [address] Care Team Providers Care Grinder Set Up Operator Gear Tool Name Role Phone Ely Whitehead MD Primary Care Provider [phone] Allergies Active Allergy Reactions Criticality Noted Date [...] Costochondral chest pain 08/15/2013 Pre-employment examination 07/26/2011 Immunizations Name Administration Dates Next Due Hepatitis [...] 66 12/06/2022 2:14 PM CDT Temperature 36.9 C (98.4 F) 12/06/2022 2:14 PM CDT Respiratory Rate 12 01/29/2014 9:41 AM CDT Oxygen Saturation 96% 12/06/2022 2:14 PM CDT Inhaled Oxygen Concentration - - Weight 77.5 kg (170 lb 12.8 oz) 12/06/2022 2:14 PM CDT shoes on Height 175.9 cm (5' 9.25) 08/15/2013 4:26 PM CS T Body Mass Index 25.04 08/15/2013 4:26 PM 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 Plan of Treatment Health Maintenance Due Date [...] 45-75 03/03/2014 03/03/20 13 (Completed outside of [facility]) Tetanus booster 03/25/2022 03/25/2012 Colonoscopy through age 75 09/26/202209/26 (Completed outside of [facility]) COVID-19 vaccine series ( season) 2024 05/23/2023, 05/17/2022 Influenza for age 50-64 04/27/2024 05/22/2013 Pap test for age 21-65 02/20/2029 , 02/21/2024, 01/30/2018 (Verified in Care Everywhere or Patient Record), Additional history exists Tdap Completed 03/25/2012 Pneumococcal series for age 6-64 Aged Out No longer eligible based on patient's age to complete this topic Procedures Procedure Name Priority Date/Time Associated Diagnosis Comments HPV HIGH RISK Routine 02/21/2024 12:00 PM CDT from Last 3 Months or Most Recently Relevant to Health Maintenance Results * HPV HIGH RISK (02/21/2024 12:00 PM CDT) TYPE 16 Negative Negative 02/27/2024 6:05 AM CDT [facility] TYPE 18 Negative Negative 02/27/2024 6:05 AM CDT [facility] OTHER HIGH RISK TYPES Negative Negative 02/27/2024 6:05 AM CDT [facility] Other (Cervical) 02/21/2024 12:00 PM CDT 02/25/2024 4:10 PM CDT Narrative [facility] - 02/27/2024 6:05 AM CDT HPV types 16, 18, 31, 33, 35, 39, 45, 51, 52, 56, 58, 59, 66 and 68 DNA were undetectable or below the pre-set threshold. Methodology: Keila Yusra 4800 HPV Test Jennifer Hollis PA-C MICROBIOLOGY [facility] [address] [place] [address], [place] from Last 3 Months or Most Recently Relevant to Health Maintenance Care Teams Grinder Set Up Operator Gear Tool Relationship Specialty [place] [address] [place] [address] [address] PCP - General Family Practice 12/21/22
--- OUTSIDE RECORDS SUMMARY | 2024-07-14 15:34 | XMS_ITS | Encounter Summary ---
Author Organization [place] Address [address] [place] [address]. [place] [address] Care Team Providers Care Soda Drier Feeder Name Role Phone Ely Whitehead MD Primary Care Provider [phone] Encounter Details Date Type Department Care Team ([facility] st Contact Info) Description 05/14/2018 [facility] Medical Advice [facility] Ear Nose and Throat [address] [facility] [address]th [place] [address] Ze Pierson MD [address] [facility] [address] [place] [address] Social History Tobacco Use Types Packs/Day Years Used Date Smoking Tobacco: Never Smokeless Tobacco: Never Alcohol Use Standard Drinks/Week Comments No 0 (1 standard drink = 0.6 oz pur e alcohol) PHQ-2 Answer Date Recorded PHQ-2 Score 0 03/22/2018 Comments No Sex and Gender Information Value Date Recorded Sex Assigned at Not on file Legal Sex Female 4:54 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
--- OUTSIDE RECORDS SUMMARY | 2024-07-14 15:35 | XMS_ITS | Continuity of Care Document ---
Author Organization [place] [facility], [place] Address [address] [place] [address] Care Team Providers Care Fermenting Cellars Receiver Name Role Phone CLAYTON DC Referring Provider Assessment Encounter Date Assessment Date Assessment LastModified by Organization Details LastModified Time 06/04/2024 06/04/2024 Time spent reviewing the patient s medical record, diagnostic studies, performing a focused history and physical exam, educating the patient regarding the natural history of disease as it pertains to the patient, discussing treatment options and alternatives, medical decision making, and chartin-39 minutes. Not available 06/09/2024 12:16:01 Plan of Treatment Reminders Order Date Submit Date Provider Last Modified By Organization Details Last Modified Time Details Appointments Medical Sclero 20 Min- 2023 11:50A [facility] Not available Not available Not available Medical S[facility] 20 Min-[place] 2023 11:50A [facility] Not available Not available Not available Lab None recorde d. Referral None recorde d. Procedures None recorde d. Surgeries None recorde d. Imaging None recorde d. Medication Orders None recorde d. Patient TargetsNo targets recorded. Patient Instructions Encounter Date Encounter Id Patient Instructions Last Modified By Organization Details Last Modified Time 06/04/2024 [id number] PROCEDURE RECOMMENDATIONS 1.{{Endovenous radiofrequency ablation* Endovenou s cyanoacrylate adhesive ablation Endovenous radiofrequency ablation or Endovenous cyanoacrylate adhesive ablation}} of the {{right left*}} {{great saphenous vein* small saphenous vein anterior saphenous vein posterior accessory saphenous vein great saphenous and small saphenous veins great saphenous and anterior saphenous veins great saphenous and posterior accessory saphenous veins great saphenous, small saphenous and anterior saphenous veins great saphenous, small saphenous and posterior accessory saphenous veins thigh extension of the small saphenous vein incompetent sound recordist vein}}. {{60927* 89004, 08866 64213 08091,3 6[address] [place] [address] [place] [address]}}. 2. Ultrasound guided foam sclerotherapy of the residual incompetent tributaries and varicosities greater than {{3.0* 4.0}}mm of the {{right left*}} leg ([address], [address]) {{1 2 3*}} sessions. Not available 06/09/2024 12:18:19 Reason for Referral None Reported. Problems Name Problem SNOMED Code Status Onset Date Resolution Date Notes Provider Name and Address Organization Details Recorded Time Essential hypertension 80866369 Active 2023 Chapito Mei PA-C [address] [place], [address], [facility] 15:24:00 Problem Notes None recorded. Procedures Surgical History Date Name Laterality Status Provider Name and Address Organization Details Recorded Time 07/03/20 24 PVC - Ultrasound Guided Sclerotherapy completed [facility] 07/03/2024 13:17:18 06/10/20 24 PVC - EVRFA: Single Vein completed [facility] 06/10/2024 14:40:04 02/25/20 24 Colonoscopy completed Chapito Mei PA-C [address] [place], [address], [facility] 03/12/2024 15:23:42 06/14/20 20 Orthopedic Surgery completed Chapito Mei PA-C [address] [place], [address], [facility] 03/12/2024 15:23:42 02/24/19 77 Appendectomy completed Chapito Mei PA-C [address] [place], [address], [facility] 03/12/2024 15:23:42 Imaging Results None recorded. Procedure Notes None recorded. Medical Equipment None Reported. Allergies Allergen ID Allergen Name Allergen Category Reaction Reaction Severity Criticality Documentation Date Start Date Code Code System Note Provider Name and Address Organization Details Recorded Time 6074 tetracycl ine medicatio n Not available Not available Not available 03/12/20242008 86572 RxNorm Chapito Mei PA-C [address] [place], [address], [facility] 15:23:14 Medications Name Sig Start [...] Smoking Status Never Smoker Chapito Mei PA-C [address] [place] [place], [address], [facility] 03/12/2024 15:23:39 What Is Your Level Of Alcohol Consumption? 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 Information not available 03/12/2024 How Much Tobacco [...] Diagnosis/Indication Diagnosis SNOMED-CT Code Diagnosis ICD10 Code [id number] Nurys Veronica MD Kristinaabel merry [address] [place] [address] 06/04/2024 14:46:40 06/10/2024 04:06:41 Pain co-occurrent and due to varicose veins of left leg [id number] 9538333 I83.812 [id number] Nurys Veronica MD Felipebrandon sousa [address] [place] [address] 06/04/2024 14:46:46 06/09/2024 15:31:13 Pain co-occurrent and due to varicose veins of left leg 7335325122 9907915 I83.812 Health Concerns Section Related Observation LastModified by Organization Detai ls LastModified Time None Recorded Concern Status LastModified by Organization Details LastModified Time None Recorded Payers Encounter Date Sequence Insurance Name Policy Number Policy De La Garza Covered Member ID De La Garza Member ID Guarantor Name 06/04/2024 1 [facility] [id number] Irish Holley [id number] Irish Holley Notes Date Note Type Note Provider Name and Address Organization Details Recorded Time 06/04/2024 text/html The patient is a 63 yo female who presents with complaints of left lower extremity varicose veins and increasing symptoms for the past few years. The patient presents after a {{6 12*}} week trial of conservative therapy including: daily exercise including moderate walking, weight control, leg elevation, OTC analgesic (eg NSAID) use prn and daily wear of Rx GCS 20-30 mm Hg. The patient reports minimal relief of symptoms with these measures. Symptoms include: pain, aching, heavy legs, recurring swelling, spider veins, surface veins. There is no history of DVT, SVT, ulceration, cellulitis or phleborrhagia. Symptom location: Bilateral spider veins, Left leg varicose veins and symptoms Symptom severity: 5/10; moderately severe Symptoms occur with: prolonged sitting and standing, after activity/exercise, and are worse later in the day. ADLs affected by symptoms:-Exercise/ac tivity: limit ability to exercise, including walking.-Work: Needs to take frequent breaks to walk and/or elevate legs.-Chores: Avoids chores or needs to take breaks to walk and/or elevate legs.-Leisure activities: Avoids activities or needs to take breaks to walk and/or elevate. Conservative measures implemented without relief of symptoms:-avoidance of prolonged periods of sitting or standing,-regular exercise including moderate daily walking,-leg elevation,-weight control,-OTC analgesics, including advil PRN,-Rx GCS 20-30 mm Hg, provided at consult 03/12/24, wears daily. Cyanoacrylate Adhesive Ablation Screening:Patient admits history of:-Reaction to bandage adhesivesPatient denies history of :-Autoimmune ktshwbqgpq-Pyjajb-Mch ction to household or medical adhesives-Reaction to nail salon treatment-3 or more allergies Nurys Veronica MD [address], [place], [place], [address], [place] [facility] 06/09/2024 12:18:34 OBGyn Episode No OBEpisode recorded.
--- OUTSIDE RECORDS SUMMARY | 2024-07-14 15:35 | XMS_ITS | Continuity of Care Document ---
Author Organization [facility] [place] Address [address] [place] [address] Care Team Providers Care Bobbin Stripper Name Role Phone CLAYTON DC Referring Provider [...] Address Organization Details Recorded Time Essential hypertension [id number] Active 2023 Chapito Mei PA-C [id number], [address] , [facility] - [facility] 15:24:00 Problem Notes None recorded. Procedures Surgical History Date Name Laterality Status Provider Name and Address Organization Details Recorded Time 07/03/20 24 PVC - Ultrasound Guided Sclerotherapy completed Jayla Wells [facility] 07/03/2024 13:17:18 06/10/20 24 PVC - EVRFA: Single Vein completed Jayla Wells [facility] 06/10/2024 14:40:04 02/25/20 24 Colonoscopy completed [address] [place], [address], [facility] 03/12/2024 15:23:42 06/14/20 20 Orthopedic Surgery completed Chapito Mei PA-C [address] [place], [address], [facility] 03/12/2024 15:23:42 02/24/19 77 Appendectomy completed Chapito Mei PA-C [address] [place], [address], [facility] 03/12/2024 15:23:42 Imaging Results None recorded. Procedure Notes None recorded. Medical Equipment None Reported. Allergies Allergen ID Allergen Name Allergen Category Reaction Reaction Severity Criticality Documentation Date Start Date Code Code System Note Provider Name and Address Organization Details Recorded Time 6074 tetracycl ine medicatio n Not available Not available Not available 03/12/20242008 13365 RxNorm Chapito Mei PA-C [address] [place], [address], [facility] 15:23:14 Medications Name Sig Start Date [...] Mei PA-C [address] [place], [address], [facility] 03/12/2024 15:23:39 What Is Your Level Of Alcohol Consumption? 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 Information not available 03/12/2024 How Much Tobacco [...] Diagnosis/Indication Diagnosis SNOMED-CT Code Diagnosis ICD10 Code 84446 MD Chen Alvarado [address] [place] [address] 06/04/2024 14:46:40 06/10/2024 04:06:41 Pain co-occurrent and due to varicose veins of left leg [id number] I83.812 [id number] Nurys Veronica MD Burnsbrandon e [address] [place] [address] 06/04/2024 14:46:46 06/09/2024 15:31:13 Pain co-occurrent and due to varicose veins of left leg [id number] I83.812 Health Concerns Section Related Observation LastModified by Organization Detai ls LastModified Time None Recorded Concern Status LastModified by Organization Details LastModified Time None Recorded Payers Encounter Date Sequence Insurance Name Policy Number Policy De La Garza Covered Member ID De La Garza Member ID Guarantor Name 06/04/2024 1 [facility] [id number] Irish Holley [id number] Irish Holley Notes Date Note Type Note [...] to bandage adhesivesPatient denies history of :-Autoimmune sopkvkyapz-Qbqkkk-Vtw ction to household or medical adhesives-Reaction to nail salon treatment-3 or more allergies Nurys Veronica MD [address] [place], [address], [place] - [facility] 06/09/2024 12:18:34 OBGyn Episode No OBEpisode recorded.
[2024-07-14 15:59] LABS: Creatinine* 0.7 mg/dL (0.5-1.5); Estimated Glomerular Filt Rate 98 ml/min
--- NOTE | 2024-07-14 16:00 | CRLHL7_ITS ---
For Patients: As a result of the Century Cures Act, medical imaging exams and procedure reports are released immediately into your electronic medical record. You may view this report before your referring provider. If you have questions, please contact your health care provider. INDICATION: Abnormal weight loss TECHNIQUE: CT chest, abdomen and pelvis acquired with 74 mL Isovue 370 IV contrast. COMPARISON: None. FINDINGS: CHEST: Cardiovascular structures: Heart size is normal. Ascending thoracic aorta measures 4.0 cm. Mediastinum and arnie: No mass or adenopathy. Lungs and pleura: Mild mosaic attenuation, likely air trapping. Mild biapical scarring. Clustered micronodules in the lateral left lower lobe on image 49 of series 3, most likely infectious/inflammatory additional scattered micronodules in both lungs. All measure less than 4 mm. Chest wall and axilla: No mass or adenopathy. Bones: No suspicious bone lesions. Unremarkable for age. ABDOMEN AND PELVIS: Liver: Several tiny cysts. No suspicious mass. Non cirrhotic morphology. Gallbladder and bile ducts: Subtle speckled high density within the gallbladder, likely stones. No biliary dilation. Pancreas: Unremarkable. Spleen: Unremarkable. Adrenal glands: Unremarkable. Kidneys: Unremarkable. GI tract: Unremarkable. Vascular structures: Unremarkable. Lymph nodes: Unremarkable. Miscellaneous: Unremarkable. No free air or significant free fluid. Pelvic Organs: Unremarkable. Bones: No suspicious bone lesions. Unremarkable for age. IMPRESSION: 1. No evidence for malignancy. 2. Follow-up cholelithiasis. Recommend gallbladder ultrasound. 3. 4.0 cm ascending aorta. 4. Bilateral pulmonary micronodules measuring less than 4 mm. 5. Mild mosaic attenuation in the lungs, most commonly due to air trapping. [employer] GUID[employer]INES - SOLID NODULES: MULTIPLE LOW RISK - nodule less than 6 mm: No routine follow-up. - nodule 6-8 mm: CT at 3-6 months, then consider CT at 18-24 months. - nodule greater than 8 mm: CT at 3-6 months, then consider CT at 18-24 months. MULTIPLE HIGH RISK - nodule less than 6 mm: Optional CT at 12 months. - nodule 6-8 mm: CT at 3-6 months, then at 18-24 months. - nodule greater than 8 mm: CT at 3-6 months, then at 18-24 months. Please note that all CT scans at this facility use dose modulation, iterative reconstruction, and/or weight-based dosing when appropriate to reduce radiation dose to as low as reasonably achievable. Dictated by Shay Smith MD @ 07/15/2024 10:51:02 AM (Electronically Signed)
== END 2024-07-14 15:32 | disposition home or self-care (01) ==
LOC: CT 15:32
PROVIDERS: PCP Physician Assistant Medical; Visit Provider Physician Assistant Medical
DX: R63.4 Abnormal weight loss (principal); K80.20 Calculus of gallbladder without cholecystitis without obstruction; R91.8 Other nonspecific abnormal finding of lung field
CPT/HCPCS: 36415; 71260; 74177; 82565; Q9967

== ENCOUNTER 2024-08-08 14:23 | Outpatient (CLI) | payer BC, SELFPAY ==
--- NOTE | 2024-08-08 14:30 | CRLHL7_ITS ---
For Patients: As a result of the Century Cures Act, medical imaging exams and procedure reports are released immediately into your electronic medical record. You may view this report before your referring provider. If you have questions, please contact your health care provider. INDICATION: Abnormal weight loss. TECHNIQUE: Multisequence multiplanar MRI of the brain prior to and following administration of 15 cc Dotarem gadolinium-based intravenous contrast. Pituitary protocol was utilized. COMPARISON: None available. FINDINGS: No evidence of acute ischemia. Scattered foci of T2 prolongation within the white matter of both cerebral hemispheres. No focus of abnormal enhancement. No discrete pituitary lesion definitely identified. The ventricles are normal in size. Flow voids of the larger intracranial arteries are preserved. Bone marrow signal intensity of the calvarium is within normal limits. The orbits are unremarkable. Mild mucosal thickening is noted within the anterior ethmoid air cells and maxillary alveolar recesses. IMPRESSION: 1. No acute intracranial abnormality. 2. No discrete pituitary lesion. 3. No intracranial mass effect or focus of abnormal enhancement. 4. Scattered foci of T2 prolongation within the supratentorial white matter, nonspecific, but typical of mild chronic small-vessel ischemic changes. Dictated by Christiano Rahman MD @ 08/11/2024 1:36:10 PM (Electronically Signed)
== END 2024-08-08 14:24 | disposition home or self-care (01) ==
LOC: MRI 14:24
PROVIDERS: PCP Physician Assistant Medical; Visit Provider Surgery
DX: R63.4 Abnormal weight loss (principal)
CPT/HCPCS: 70553; A9575

== ENCOUNTER 2025-04-02 13:05 | Outpatient (CLI) | payer BC, SELFPAY ==
--- NOTE | 2025-04-02 13:20 | CRLHL7_ITS ---
For Patients: As a result of the Century Cures Act, medical imaging exams and procedure reports are released immediately into your electronic medical record. You may view this report before your referring provider. If you have questions, please contact your health care provider. INDICATION: BILATERAL SCREENING MAMMOGRAM, ASYMPTOMATIC 64 Y/O FEMALE COMPARISON: 03/31/2024, 04/12/2023, 03/20/2022 TECHNIQUE: Digital mammogram in CC and MLO projections including computer-aided detection (CAD) and tomosynthesis. BREAST COMPOSITION: The breasts are heterogeneously dense, which may obscure small masses. FINDINGS: No suspicious findings. ASSESSMENT: BI-RADS 2 Benign RECOMMENDATION: Annual screening mammogram. A lay language report of this examination will be provided to the patient. Dictated by: Malcolm Hansen MD @ 04/03/2025 09:14:55 (Electronically Signed)
== END 2025-04-02 13:06 | disposition home or self-care (01) ==
LOC: MAMMO 13:05
PROVIDERS: PCP Physician Assistant Medical; Visit Provider Physician Assistant Medical
DX: Z12.31 Encounter for screening mammogram for malignant neoplasm of breast (principal); R92.333 Mammographic heterogeneous density, bilateral breasts
CPT/HCPCS: 77063; 77067

== ENCOUNTER 2025-05-06 07:56 | Outpatient (CLI) | payer BC, SELFPAY | END 2025-05-06 07:57 | disposition home or self-care (01) | LOC: NFLDREF 05-11 08:53 | PROVIDERS: PCP Physician Assistant Medical; Referring Provider Physician Assistant Medical; Visit Provider Physician Assistant Medical | DX: E78.5 Hyperlipidemia, unspecified (principal); I10 Essential (primary) hypertension; R73.09 Other abnormal glucose; R63.4 Abnormal weight loss; F41.9 Anxiety disorder, unspecified | CPT/HCPCS: 80053; 80061; 82306; 84443 ==